=== PATIENT | female | born 1995 | race Caucasian/White ===

== ENCOUNTER 2022-03-22 23:46 | Inpatient (IN) | payer OTHER, SELFPAY ==
[2022-03-23 00:11] VITALS: BP 113/74; PULSE 95; RESP 16; TEMP 36.6; O2SAT 97
[2022-03-23] MEDS: traZODone HCL 50 MG TABLET PO ×2 (00:38→21:59)
[2022-03-23 02:09] VITALS: BMI 21.9
[2022-03-23 09:43] VITALS: BP 115/71; PULSE 97; RESP 18; TEMP 36.4; O2SAT 97
[2022-03-23] MEDS: clonazePAM 0.5 MG TABLET PO ×2 (13:35→22:00)
[2022-03-23] MEDS: Nicotine 21 MG PATCH.TD24 TRANSDERMA (13:35)
[2022-03-23] MEDS: hydrOXYzine HCL 25 MG TABLET PO ×2 (15:05→20:39)
[2022-03-23 15:49] VITALS: BP 113/73; PULSE 104; RESP 18
--- NOTE | 2022-03-23 15:58 | P.CONHOSP_ITS ---
History of Present Illness Data of Consult Service Date: 03/23/22 Requesting physician: Emmanuel Swanson Primary Care Provider: Unknown Physician HPI 26 year old women with hx of ASD with no acute complications admitted to adult [facility] for psychiatric care. At this time she has no acute medical complaints. No labs have been drawn, she is hemodynamically stable. Review of Systems Review of Systems: Denies any recent fever chills or decrease in appetite respiratory denies any shortness of breath coverage production cardiovascular reported substernal chest pain gastrointestinal denies any dysphagia abdominal pain nausea vomiting or diarrhea genitourinary denies any dysuria frequency or hematuria musculoskeletal denies any joint pain or swelling neuropsych denies any weakness or seizures all other systems reviewed are negative [facility] Medical History (Updated 03/23/22 @ 16:04 by Gabriela Lyon NP) Atrial septal defect Family History (Updated 03/23/22 @ 16:02 by Gabriela Lyon NP) Father Myocardial infarction Pertinent family history: Cancer, unknown type Surgical History (Updated 03/23/22 @ 16:01 by Gabriela Lyon NP) No pertinent past surgical history Social History Household Members: Family Housing: House Do you presently have visiting nurse or other home services: No Patient Tobacco Use Status: Current everyday Tobacco user Tobacco use type: Smokeless Tobacco Smoked in Last 30 Days: Yes e-Cigarette/Vaping Use: Currently Using Patient Interested in Nicotine Replacement: Yes Patient Given Instructions on How to Stop Smoking: No Second Hand Smoke Exposure: No Use of substances other than those prescribed or required for medical reasons: Yes Substance Use Type: Marijuana Substance Use Frequency: Occasionally Currently Displaying Signs/Symptoms of Drug Intoxication Withdrawal: No Other Past Substance Use Problem:: pt has chronic hx of substance use, mainly cocaine, last used 4-5 mos ago Any prior treatment program specific to substance use: Yes (pt recently at treatment facility in [place]) Spiritual Healthcare Practices: none noted Orthodoxy Healthcare Practices: none noted Cultural Healthcare Practices: none noted Advance Directives: No Do you have thoughts of harming others: None Do you have a plan to hurt others: No Plan Recently lost weight without trying: No Nutrition Risks: No Nutritional Risk Patient : No : No Meds Allergies Allergy/AdvReac Type Severity Reaction Status Date / Time bupropion [From Wellbutrin] Allergy Anaphylaxis Verified 03/23/22 02:09 mushroom Allergy Hives Verified 03/23/22 02:09 Penicillins Allergy Anaphylaxis Verified 03/23/22 00:28 Active Medications: Current Medications Acetaminophen (Acetaminophen 325 Mg Tablet) 650 mg PO Q6H PRN PRN Reason: Headache/Pain Mild Scale (1-3) Al Hydroxide/Mg Hydroxide (Magnesium Hydrox/Alum Hydrox 30 Ml Oral.Susp) 30 ml PO Q6H PRN PRN Reason: Heartburn/Nausea Clonazepam (Clonazepam 0.5 Mg Tablet) 0.5 mg PO BID [facility]HAEL Clonidine HCl (Clonidine Hcl 0.1 Mg Tablet) 0.05 mg PO BID@0900,1500 MICHAEL; Protocol Clonidine HCl (Clonidine Hcl 0.1 Mg Tablet) 0.1 mg PO BEDTIME MICHAEL; Protocol Hydroxyzine HCl (Hydroxyzine Hcl 25 Mg Tablet) 25 mg PO Q4H PRN PRN Reason: Anxiety Last Admin: 03/23/22 15:05 Dose: 25 mg Hydroxyzine HCl (Hydroxyzine Hcl 25 Mg Tablet) 25 mg PO BID MICHAEL Magnesium Hydroxide (Milk Of Magnesia 30 Ml Oral.Susp) 30 ml PO DAILY PRN PRN Reason: Constipation Nicotine (Nicotine 21 Mg Patch.Td24) 21 mg TRANSDERMA DAILY MICHAEL Last Admin: 03/23/22 13:35 Dose: 21 mg Nicotine Polacrilex (Nicotine Polacrilex 2 Mg Gum) 4 mg BUCCAL Q2H PRN PRN Reason: Nicotine Cravings Olanzapine (Olanzapine 5 Mg Tablet) 5 mg PO Q4H PRN PRN Reason: agitation Trazodone HCl (Trazodone Hcl 50 Mg Tablet) 50 mg PO BEDTIME PRN PRN Reason: Insomnia Last Admin: 03/23/22 00:38 Dose: 25 mg Home Medications Medication Instructions Recorded Confirmed Last Taken Type Vitamin C 1,000 mg PO DAILY 03/23/22 03/23/22 Unknown History divalproex 250 mg tablet,delayed 250 mg PO BID 03/23/22 03/23/22 Unknown History release (Depakote) hydroxyzine pamoate 25 mg capsule 25 mg BID 03/23/22 03/23/22 Unknown History levetiracetam 500 mg tablet 500 mg PO BID 03/23/22 03/23/22 Unknown History (Keppra) oxcarbazepine 300 mg tablet 300 mg PO BID 03/23/22 03/23/22 Unknown History sertraline 50 mg tablet 50 mg PO DAILY 03/23/22 03/23/22 Unknown History Physical Exam Vital Signs and Narrative: Vital Signs: Last Vital Signs Temp 97.5 F 03/23/22 09:43 Pulse 104 H 03/23/22 15:49 Resp 18 03/23/22 15:49 BP 113/73 03/23/22 15:49 Pulse Ox 97 03/23/22 09:43 O2 Del Method 03/23/22 09:43 BMI result Body Mass Index 21.9 Appearing in no acute distress head is normocephalic atraumatic eyes pupils are PERRLA sclera is anicteric lung sounds are clear to auscultation heart regular rate rhythm, clear S1, S2 positive bowel sounds, abdomen is soft, nontender neuro patient is alert x3, no focal deficits Musculoskeletal palpable substernal chest pain Cranial nerves 2-12 are grossly intact without focal deficits Assessment and Plan (1) Poor mental health: Status: Acute Plan 26-year-old admitted to adult psych for psychiatric care Substernal chest pain, pain on palpation Musculoskeletal May take ibuprofen Hot packs Mental health Management as per psychiatric team History of atrial septal defect, congenital No surgical intervention Should follow up with helper driver at some point outpatient Attending Dr. Panda
[2022-03-23] MEDS: cloNIDine HCL 0.1 MG TABLET 0.05 MG PO (15:59)
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
[2022-03-23] MEDS: cloNIDine HCL 0.1 MG TABLET PO (21:58)
[2022-03-23 22:40] VITALS: BP 121/66; PULSE 92; RESP 18; TEMP 36.4; O2SAT 99
[2022-03-24 06:00] VITALS: BP 108/65; PULSE 76; RESP 18; TEMP 36.4; O2SAT 100
[2022-03-24 07:33] LABS: Estimated Average Glucose 94 mg/dL; Hemoglobin A1c % 4.9 %
[2022-03-24 07:48] LABS: Alanine Aminotransferase 32 U/L (0-31); Albumin Level 4.1 g/dL (3.5-5.0); Alkaline Phosphatase 39 U/L (39-117); Anion Gap 11 (12-20); Aspartate Amino Transferase 20 U/L (5-31); Bilirubin Direct < 0.2 mg/dL (0.0-0.5); Bilirubin Total 0.3 mg/dL (0.0-1.0); Blood Urea Nitrogen 16 mg/dL (9-16); Calcium 9.2 mg/dL (8.4-10.2); Carbon Dioxide 25 mmol/L (22-29); Chloride 104 mmol/L (96-108); Cholesterol 196 mg/dL; Creatinine Clr Calc Pharmacy 85.8; Estimated Glomerular Filt Rate > 60; Glucose Fasting 96 mg/dL (60-99); HDL Cholesterol 62 mg/dL; LDL Cholesterol Calculated 113 mg/dl; Potassium 3.9 mmol/L (3.3-5.1); Sodium 136 mmol/L (135-145); Total Protein 6.6 g/dL (6.5-8.0); Triglycerides 107 mg/dL
[2022-03-24 08:10] LABS: Free T4 (Free Thyroxine) 0.78 ng/dL (0.71-1.85); Thyroid Stimulating Hormone 1.96 uIU/mL (0.32-4.0)
[2022-03-24] MEDS: hydrOXYzine HCL 25 MG TABLET PO ×3 (09:58→18:58)
[2022-03-24] MEDS: cloNIDine HCL 0.1 MG TABLET 0.05 MG PO (09:58)
[2022-03-24] MEDS: clonazePAM 0.5 MG TABLET PO ×2 (09:59→21:47)
[2022-03-24] MEDS: Nicotine 21 MG PATCH.TD24 TRANSDERMA (09:59)
[2022-03-24 11:37] VITALS: BP 110/58; PULSE 82; RESP 18; O2SAT 100
[2022-03-24 14:40] VITALS: BP 110/59; PULSE 72; O2SAT 100
[2022-03-24] MEDS: cloNIDine HCL 0.1 MG TABLET PO (14:44)
[2022-03-24] MEDS: Divalproex Sodium 500 MG TABLET.DR PO ×2 (14:44→21:47)
--- NOTE | 2022-03-24 15:27 | HO.PSYCHPN ---
Subjective Subjective Date of Service: 03/24/22 Reason For Visit: Posttraumatic Stress Interim History: pt on phone, kody HERNANDEZ. states she needs to speak to MD. states her somatic Sx seem to have resolved but her PTSD Sx have been in overdrive. she asks to restart VPA 500 BID, as she found that to have been helpful in the past. in addition, willing to increase clonidine to 0.1/0.1/0.2. per staff, slept well. feeling physically fine now, but thoughts racing. episode of CP (anxiety). vistaril has been helpful. very anxious. had nightmares but had left juany patch on. will be sure to remove juany patch prior to sleep tonight. Mental Status Exam Mental Status Exam Narrative: appropriately dressed and groomed. no PMA/PMR. cooperative. speech incr rate, amount; nml loudness, tone, latency. thoughts linear and logical. affect full range, normo-intense, non-labile. mood anxious. no SI/HI/AVH expressed. Diagnostics Vital Signs (24Hr): Vital Signs - 24 hr 03/23/22 15:49 03/23/22 22:40 03/24/22 06:00 Temperature 97.6 F 97.6 F Pulse Rate 104 H 92 76 Respiratory Rate 18 18 18 Blood Pressure 113/73 121/66 108/65 Pulse Oximetry 99 100 Oxygen Delivery Method Room Air Room Air 03/24/22 11:37 03/24/22 14:40 Temperature Pulse Rate 82 72 Respiratory Rate 18 Blood Pressure 110/58 L 110/59 L Pulse Oximetry 100 100 Oxygen Delivery Method Room Air Room Air BMI result Body Mass Index 21.9 Labs Results: 03/24/22 06:57 Labs: Laboratory Results - last 48 hr 03/24/22 03/24/22 06:57 06:57 Sodium 136 Potassium 3.9 Chloride 104 Carbon Dioxide 25 Anion Gap 11 L BUN 16 Creatinine 0.75 Estim Creat Clear Calc 85.8 Estimated GFR > 60 Fasting Glucose 96 Estimat Average Glucose 94 Hemoglobin A1c % 4.9 Calcium 9.2 Total Bilirubin 0.3 Direct Bilirubin < 0.2 AST 20 ALT 32 H Alkaline Phosphatase 39 Total Protein 6.6 Albumin 4.1 Triglycerides 107 Cholesterol 196 LDL Cholesterol, Calc 113 HDL Cholesterol 62 TSH 1.96 Free T4 0.78 Medications Medications Current Medications Acetaminophen (Acetaminophen 325 Mg Tablet) 650 mg PO Q6H PRN PRN Reason: Headache/Pain Mild Scale (1-3) Al Hydroxide/Mg Hydroxide (Magnesium Hydrox/Alum Hydrox 30 Ml Oral.Susp) 30 ml PO Q6H PRN PRN Reason: Heartburn/Nausea Artificial Tears (Artificial Tears 15 Ml Drops) 1 drop EYE-BOTH Q4H PRN PRN Reason: Dry Eyes Clonazepam (Clonazepam 0.5 Mg Tablet) 0.5 mg PO BID [facility] Last Admin: 03/24/22 09:59 Dose: 0.5 mg Clonidine HCl (Clonidine Hcl 0.1 Mg Tablet) 0.1 mg PO BID@0900,1500 [facility]; Protocol Last Admin: 03/24/22 14:44 Dose: 0.1 mg Clonidine HCl (Clonidine Hcl 0.2 Mg Tablet) 0.2 mg PO BEDTIME [facility]; Protocol Divalproex Sodium (Divalproex Sodium 500 Mg Tablet.Dr) 500 mg PO BID [facility] Last Admin: 03/24/22 14:44 Dose: 500 mg Hydroxyzine HCl (Hydroxyzine Hcl 25 Mg Tablet) 25 mg PO Q4H PRN PRN Reason: Anxiety Last Admin: 03/24/22 11:42 Dose: 25 mg Hydroxyzine HCl (Hydroxyzine Hcl 25 Mg Tablet) 25 mg PO BID [facility] Last Admin: 03/24/22 09:58 Dose: 25 mg Magnesium Hydroxide (Milk Of Magnesia 30 Ml Oral.Susp) 30 ml PO DAILY PRN PRN Reason: Constipation Nicotine (Nicotine 21 Mg Patch.Td24) 21 mg TRANSDERMA DAILY [facility] Last Admin: 03/24/22 09:59 Dose: 21 mg Nicotine Polacrilex (Nicotine Polacrilex 2 Mg Gum) 4 mg BUCCAL Q2H PRN PRN Reason: Nicotine Cravings Olanzapine (Olanzapine 5 Mg Tablet) 5 mg PO Q4H PRN PRN Reason: agitation Trazodone HCl (Trazodone Hcl 50 Mg Tablet) 50 mg PO BEDTIME PRN PRN Reason: Insomnia Allergies Allergies Allergy/AdvReac Type Severity Reaction Status Date / Time bupropion [From Wellbutrin] Allergy Anaphylaxis Verified 03/23/22 02:09 mushroom Allergy Hives Verified 03/23/22 02:09 Penicillins Allergy Anaphylaxis Verified 03/23/22 00:28 Assessment & Plan Assessment & Plan (1) Cocaine use disorder: Status: Acute Code(s): F14.10 - Cocaine abuse, uncomplicated (2) Chronic post-traumatic stress disorder (PTSD): Status: Acute Code(s): F43.12 - Post-traumatic stress disorder, chronic Plan 03/23: start clonidine 0.05/0.05/0.1 for sympathetic hyperarousal and insomnia with nightmares. start klonopin 0.5 BID for Sz prophylaxis as pt stops 3 AEDs simultaneously. also, anxiety. restart hydroxyzine 25 BID and 25 PRN. 03/24: increased clonidine to 0.1/0.1/0.2 for anxiety/hyperarousal. continue klonopin for now. somatic complaints have ceased, pt requesting VPA restart 500 BID for anxiety, which is accommodated. I spent ___25___ minutes with the patient and/or on the patient floor today, greater than?50% of which was spent counseling/coordinating care. Reason for contiued inpatient stay Substantial Risk for: harm to self, inability to function and rapid decompensation
[2022-03-24] MEDS: Magnesium Hydrox/Alum Hydrox 30 ML ORAL.SUSP PO (18:43)
[2022-03-24] MEDS: Nicotine Polacrilex 2 MG GUM 4 MG BUCCAL (21:26)
[2022-03-24] MEDS: cloNIDine HCL 0.2 MG TABLET PO (21:48)
[2022-03-24] MEDS: traZODone HCL 50 MG TABLET PO (21:50)
[2022-03-24] MEDS: Artificial Tears 15 ML DROPS 1 DROP EYE-BOTH (21:54)
[2022-03-24 21:56] VITALS: BP 110/69; PULSE 80; RESP 18; TEMP 36.7; O2SAT 100
[2022-03-25 06:00] VITALS: BP 94/53; PULSE 64; RESP 16; TEMP 36.7; O2SAT 99
[2022-03-25] MEDS: hydrOXYzine HCL 25 MG TABLET PO ×3 (09:23→22:11)
[2022-03-25] MEDS: Divalproex Sodium 500 MG TABLET.DR PO ×2 (09:23→22:10)
[2022-03-25] MEDS: clonazePAM 0.5 MG TABLET PO ×2 (09:23→22:10)
[2022-03-25] MEDS: Acetaminophen 325 MG TABLET 650 MG PO (09:40)
[2022-03-25 11:15] LABS: Folate 14.5 ng/mL (> or = 4.0); Vitamin B12 892 pg/mL (200-900)
[2022-03-25] MEDS: Artificial Tears 15 ML DROPS 1 DROP EYE-BOTH (11:17)
--- NOTE | 2022-03-25 14:07 | P.PNPSI_ITS ---
Subjective Subjective Date of Service: 03/25/22 Reason For Visit: Posttraumatic Stress Interim History: pt states her mood and anxiety are improved from yesterday, glad the depakote has been restarted. feels most of her neurologic somatic complaints have resolved. she has been experiencing CP, however, midsternum to right side, dull, 7/10, intermittent, worse with palpation or positioning compressing the area, nothing seems to make it better. in addition she c/o rash over right abd /flank down through her thigh. the area has been itchy. the rash appears to have improved somewhat today, but it remains itchy. pt concerned about her BP having come down a bit and daytime clonidine is reduced back to 0.05 mg each dose. she states she had no nightmares last night and slept well, so HS clonidine to be left at 0.2 mg. although pt is resistant to taper of klonopin, she reluctantly agrees to begin the same, with morning dose being decreased to 0.25 mg tomorrow. per staff, during days yesterday pt felt like she was freaking out. restless, anxiety 7. abd rash, itchy. poor sleep friday night, nightmares, had left juany patch on. no nightmares last nihgt, juany patch was off. Mental Status Exam Mental Status Exam Narrative: appropriately dressed and groomed. no PMA/PMR. cooperative. speech incr rate, amount; nml loudness, tone, latency. thoughts linear and logical. affect constricted, normo-intense, non-labile. mood anxious. no SI/HI/AVH expressed. Diagnostics Vital Signs (24Hr): Vital Signs - 24 hr 03/24/22 14:40 03/24/22 21:56 03/25/22 06:00 Temperature 98.1 F 98.1 F Pulse Rate 72 80 64 Respiratory Rate 18 16 Blood Pressure 110/59 L 110/69 94/53 L Pulse Oximetry 100 100 99 Oxygen Delivery Method Room Air Room Air Room Air BMI result Body Mass Index 21.9 Labs Results: 03/24/22 06:57 Labs: Laboratory Results - last 48 hr 03/24/22 03/24/22 03/24/22 06:57 06:57 06:57 Sodium 136 Potassium 3.9 Chloride 104 Carbon Dioxide 25 Anion Gap 11 L BUN 16 Creatinine 0.75 Estim Creat Clear Calc 85.8 Estimated GFR > 60 Fasting Glucose 96 Estimat Average Glucose 94 Hemoglobin A1c % 4.9 Calcium 9.2 Total Bilirubin 0.3 Direct Bilirubin < 0.2 AST 20 ALT 32 H Alkaline Phosphatase 39 Total Protein 6.6 Albumin 4.1 Triglycerides 107 Cholesterol 196 LDL Cholesterol, Calc 113 HDL Cholesterol 62 Vitamin B12 892 Folate 14.5 TSH 1.96 Free T4 0.78 Medications Medications Current Medications Acetaminophen (Acetaminophen 325 Mg Tablet) 650 mg PO Q6H PRN PRN Reason: Headache/Pain Mild Scale (1-3) Last Admin: 03/25/22 09:40 Dose: 650 mg Al Hydroxide/Mg Hydroxide (Magnesium Hydrox/Alum Hydrox 30 Ml Oral.Susp) 30 ml PO Q6H PRN PRN Reason: Heartburn/Nausea Last Admin: 03/24/22 18:43 Dose: 30 ml Artificial Tears (Artificial Tears 15 Ml Drops) 1 drop EYE-BOTH Q4H PRN PRN Reason: Dry Eyes Last Admin: 03/25/22 11:17 Dose: 1 drop Clonazepam (Clonazepam 0.5 Mg Tablet) 0.5 mg PO BEDTIME [facility] Clonazepam (Clonazepam 0.5 Mg Tablet) 0.25 mg PO DAILY [facility] Clonidine HCl (Clonidine Hcl 0.2 Mg Tablet) 0.2 mg PO BEDTIME [facility]; Protocol Last Admin: 03/24/22 21:48 Dose: 0.2 mg Clonidine HCl (Clonidine Hcl 0.1 Mg Tablet) 0.05 mg PO BID@0900,1500 [facility]; Protocol Divalproex Sodium (Divalproex Sodium 500 Mg Tablet.Dr) 500 mg PO BID [facility] Last Admin: 03/25/22 09:23 Dose: 500 mg Hydroxyzine HCl (Hydroxyzine Hcl 25 Mg Tablet) 25 mg PO Q4H PRN PRN Reason: Anxiety Last Admin: 03/24/22 18:58 Dose: 25 mg Hydroxyzine HCl (Hydroxyzine Hcl 25 Mg Tablet) 25 mg PO BID [facility] Last Admin: 03/25/22 09:23 Dose: 25 mg Magnesium Hydroxide (Milk Of Magnesia 30 Ml Oral.Susp) 30 ml PO DAILY PRN PRN Reason: Constipation Nicotine (Nicotine 21 Mg Patch.Td24) 21 mg TRANSDERMA DAILY [facility] Last Admin: 03/25/22 09:57 Dose: Not Given Nicotine Polacrilex (Nicotine Polacrilex 2 Mg Gum) 4 mg BUCCAL Q2H PRN PRN Reason: Nicotine Cravings Last Admin: 03/24/22 21:26 Dose: 4 mg Olanzapine (Olanzapine 5 Mg Tablet) 5 mg PO Q4H PRN PRN Reason: agitation Trazodone HCl (Trazodone Hcl 50 Mg Tablet) 50 mg PO BEDTIME PRN PRN Reason: Insomnia Last Admin: 03/24/22 21:50 Dose: 50 mg Allergies Allergies Allergy/AdvReac Type Severity Reaction Status Date / Time bupropion [From Wellbutrin] Allergy Anaphylaxis Verified 03/23/22 02:09 mushroom Allergy Hives Verified 03/23/22 02:09 Penicillins Allergy Anaphylaxis Verified 03/23/22 00:28 Assessment & Plan Assessment & Plan (1) Cocaine use disorder: Status: Acute Code(s): F14.10 - Cocaine abuse, uncomplicated (2) Chronic post-traumatic stress disorder (PTSD): Status: Acute Code(s): F43.12 - Post-traumatic stress disorder, chronic Plan 03/23: start clonidine 0.05/0.05/0.1 for sympathetic hyperarousal and insomnia with nightmares. start klonopin 0.5 BID for Sz prophylaxis as pt stops 3 AEDs simultaneously. also, anxiety. restart hydroxyzine 25 BID and 25 PRN. 03/24: increased clonidine to 0.1/0.1/0.2 for anxiety/hyperarousal. continue klonopin for now. somatic complaints have ceased, pt requesting VPA restart 500 BID for anxiety, which is accommodated. 03/25: less anxious today, BP down. decrease clonidine from 0.1/0.1/0.2 to 0.05/0.05/0 .2. slept well without nightmares. begin klonopin taper, going from 0.5 BID to 0.25/0.5 as of tomorrow. c/p CP and rash, hospitalist consult placed. I spent ___35___ minutes with the patient and/or on the patient floor today, greater than?50% of which was spent counseling/coordinating care. Reason for contiued inpatient stay Substantial Risk for: inability to function and rapid decompensation
[2022-03-25] MEDS: cloNIDine HCL 0.1 MG TABLET 0.05 MG PO (15:39)
--- NOTE | 2022-03-25 16:15 | PM.EVENT ---
Event Note Date of Service: 03/25/22 Event Note: Called to evaluate patient for rash. Patient reports rash on her left trunk and left leg which is pruritic in nature. No rash was able to be visualized upon exam. Patient states that the rash is improving. She also reports itchy eyes. Patient receiving Atarax as well as artificial tears. She also reported chest pain, evaluated for chest pain on the . No change in pain. Reproducible on exam, reports the pain is constant. EKG ordered. Likely muscular, can continue to treat symptomatically.
[2022-03-25] MEDS: OLANZapine 5 MG TABLET PO (17:34)
[2022-03-25] MEDS: Nicotine Polacrilex 2 MG GUM 4 MG BUCCAL (17:38)
[2022-03-25 20:28] VITALS: BP 104/59; PULSE 76; RESP 18; TEMP 36.6; O2SAT 100
[2022-03-25] MEDS: cloNIDine HCL 0.2 MG TABLET PO (22:09)
[2022-03-26 09:30] VITALS: BP 77/38; PULSE 52; RESP 16; TEMP 36.7; O2SAT 97
[2022-03-26] MEDS: clonazePAM 0.5 MG TABLET 0.25 MG PO (09:38)
[2022-03-26] MEDS: Divalproex Sodium 500 MG TABLET.DR PO ×2 (09:38→21:17)
[2022-03-26] MEDS: hydrOXYzine HCL 25 MG TABLET PO ×3 (09:38→21:17)
[2022-03-26] MEDS: Nicotine 21 MG PATCH.TD24 TRANSDERMA (09:40)
[2022-03-26] MEDS: Artificial Tears 15 ML DROPS 1 DROP EYE-BOTH (09:45)
--- NOTE | 2022-03-26 10:14 | PC.NURSE ---
Patient Clonidine held due to low BP 77/[address] Swanson notified. Retaken after food and fluids 93/57 HR 58. Patient haim any symptoms.
[2022-03-26] MEDS: OLANZapine 5 MG TABLET PO ×2 (13:33→21:17)
--- NOTE | 2022-03-26 14:00 | HO.PSYCHPN ---
Subjective Subjective Date of Service: 03/26/22 Reason For Visit: Posttraumatic Stress Interim History: pt calm and cooperative. very voluble. attempting to describe what she feels is wrong with her, what has been improved, what she still feels needs to be worked on. states the strange somatic things that were happening when she came in have resolved. doesn't mention chest pain or rash at all today. feeling better, starting to have feelings, but still dealing with a lot of anxiety and rapid thoughts. reiterates how SSRIs made her feel speedy. that she is feeling a bit speedy now. that she took a zyprexa PRN which helped get her thoughts together and feel more like herself. agrees to schedule zyprexa 5 BID. will DC daytime clonidine due to hypotension but continue HS clonidine for nightmares and insomnia. per staff, anx/dep 11/22. not happy with klonopin reduction. denies SI. feels safe on the unit. moderately depressed, no anxiety. attending groups. eating and sleeping well. Mental Status Exam Mental Status Exam Narrative: appropriately dressed and groomed. no PMA/PMR. cooperative. speech incr rate, amount; nml loudness, tone. decr latency. thoughts less linear and logical. affect full range, normo-intense, non-labile. mood anxious. no SI/HI/AVH expressed. Diagnostics Vital Signs (24Hr): Vital Signs - 24 hr 03/25/22 20:28 03/26/22 09:30 Temperature 97.9 F 98.0 F Pulse Rate 76 52 Respiratory Rate 18 16 Blood Pressure 104/59 L 77/38 L Pulse Oximetry 100 97 Oxygen Delivery Method Room Air Room Air BMI result Body Mass Index 21.9 Labs Results: 03/24/22 06:57 Labs: Laboratory Results - last 48 hr 03/24/22 06:57 Vitamin B12 892 Folate 14.5 Medications Medications Current Medications Acetaminophen (Acetaminophen 325 Mg Tablet) 650 mg PO Q6H PRN PRN Reason: Headache/Pain Mild Scale (1-3) Last Admin: 03/25/22 09:40 Dose: 650 mg Al Hydroxide/Mg Hydroxide (Magnesium Hydrox/Alum Hydrox 30 Ml Oral.Susp) 30 ml PO Q6H PRN PRN Reason: Heartburn/Nausea Last Admin: 03/24/22 18:43 Dose: 30 ml Artificial Tears (Artificial Tears 15 Ml Drops) 1 drop EYE-BOTH Q4H PRN PRN Reason: Dry Eyes Last Admin: 03/26/22 09:45 Dose: 1 drop Clonazepam (Clonazepam 0.5 Mg Tablet) 0.5 mg PO BEDTIME [facility] Last Admin: 03/25/22 22:10 Dose: 0.5 mg Clonazepam (Clonazepam 0.5 Mg Tablet) 0.25 mg PO DAILY [facility] Last Admin: 03/26/22 09:38 Dose: 0.25 mg Clonidine HCl (Clonidine Hcl 0.2 Mg Tablet) 0.2 mg PO BEDTIME [facility]; Protocol Last Admin: 03/25/22 22:09 Dose: 0.2 mg Divalproex Sodium (Divalproex Sodium 500 Mg Tablet.Dr) 500 mg PO BID [facility] Last Admin: 03/26/22 09:38 Dose: 500 mg Hydroxyzine HCl (Hydroxyzine Hcl 25 Mg Tablet) 25 mg PO Q4H PRN PRN Reason: Anxiety Last Admin: 03/25/22 15:39 Dose: 25 mg Hydroxyzine HCl (Hydroxyzine Hcl 25 Mg Tablet) 25 mg PO BID [facility] Last Admin: 03/26/22 09:38 Dose: 25 mg Magnesium Hydroxide (Milk Of Magnesia 30 Ml Oral.Susp) 30 ml PO DAILY PRN PRN Reason: Constipation Nicotine (Nicotine 21 Mg Patch.Td24) 21 mg TRANSDERMA DAILY [facility] Last Admin: 03/26/22 09:40 Dose: 21 mg Nicotine Polacrilex (Nicotine Polacrilex 2 Mg Gum) 4 mg BUCCAL Q2H PRN PRN Reason: Nicotine Cravings Last Admin: 03/25/22 17:38 Dose: 4 mg Olanzapine (Olanzapine 5 Mg Tablet) 5 mg PO Q4H PRN PRN Reason: agitation Last Admin: 03/25/22 17:34 Dose: 5 mg Olanzapine (Olanzapine 5 Mg Tablet) 5 mg PO BID [facility] Last Admin: 03/26/22 13:33 Dose: 5 mg Trazodone HCl (Trazodone Hcl 50 Mg Tablet) 50 mg PO BEDTIME PRN PRN Reason: Insomnia Last Admin: 03/24/22 21:50 Dose: 50 mg Allergies Allergies Allergy/AdvReac Type Severity Reaction Status Date / Time bupropion [From Wellbutrin] Allergy Severe Anaphylaxis Verified 03/26/22 09:49 Penicillins Allergy Severe Anaphylaxis Verified 03/26/22 09:49 mushroom Allergy Hives Verified 03/23/22 02:09 Assessment & Plan Assessment & Plan (1) Cocaine use disorder: Status: Acute Code(s): F14.10 - Cocaine abuse, uncomplicated (2) Chronic post-traumatic stress disorder (PTSD): Status: Acute Code(s): F43.12 - Post-traumatic stress disorder, chronic Plan 03/23: start clonidine 0.05/0.05/0.1 for sympathetic hyperarousal and insomnia with nightmares. start klonopin 0.5 BID for Sz prophylaxis as pt stops 3 AEDs simultaneously. also, anxiety. restart hydroxyzine 25 BID and 25 PRN. 03/24: increased clonidine to 0.1/0.1/0.2 for anxiety/hyperarousal. continue klonopin for now. somatic complaints have ceased, pt requesting VPA restart 500 BID for anxiety, which is accommodated. 03/25: less anxious today, BP down. decrease clonidine from 0.1/0.1/0.2 to 0.05/0.05/0.2. slept well without nightmares. begin klonopin taper, going from 0.5 BID to 0.25/0.5 as of tomorrow. c/p CP and rash, hospitalist consult placed. 03/26: anxious, helped by zyprexa. zyprexa scheduled at 5 BID today. daytime clonidine DCed due to hypotension. HS clonidine 0.2 mg conserved. starting to have feelings. I spent ___35___ minutes with the patient and/or on the patient floor today, greater than?50% of which was spent counseling/coordinating care. Reason for contiued inpatient stay Substantial Risk for: inability to function and rapid decompensation
[2022-03-26] MEDS: clonazePAM 0.5 MG TABLET PO (21:17)
[2022-03-26] MEDS: cloNIDine HCL 0.2 MG TABLET PO (21:17)
[2022-03-26] MEDS: Acetaminophen 325 MG TABLET 650 MG PO (21:23)
[2022-03-26 21:27] VITALS: BP 114/64; PULSE 70; RESP 18; TEMP 36.8; O2SAT 99
[2022-03-26] MEDS: traZODone HCL 50 MG TABLET PO (22:49)
[2022-03-26] MEDS: Ibuprofen 800 MG TABLET PO (23:34)
[2022-03-27 08:30] VITALS: BP 87/53; PULSE 65; RESP 16; TEMP 36.4; O2SAT 99
[2022-03-27] MEDS: OLANZapine 5 MG TABLET PO ×3 (09:08→20:58)
[2022-03-27] MEDS: clonazePAM 0.5 MG TABLET 0.25 MG PO (09:08)
[2022-03-27] MEDS: Divalproex Sodium 500 MG TABLET.DR PO ×2 (09:08→20:58)
[2022-03-27] MEDS: hydrOXYzine HCL 25 MG TABLET PO ×2 (09:08→11:48)
[2022-03-27] MEDS: Ibuprofen 800 MG TABLET PO (10:27)
[2022-03-27] MEDS: Nicotine Polacrilex 2 MG GUM 4 MG BUCCAL (10:29)
--- NOTE | 2022-03-27 11:00 | P.PNPSI_ITS ---
Subjective Subjective Date of Service: 03/27/22 Reason For Visit: Posttraumatic Stress Interim History: Patient seen gives a chaotic somewhat disorganized history. Patient on Depakote remains pressured labile perseverative Some degree of flight of ideas question anxiety related versus mood disorder try to get history of whether not the patient has been treated with antipsychotics not yet stabilized with Depakot e Medication Compliance: Yes Side effects from medications: Yes (Abdominal upset with Motrin) Mental Status Exam Mental Status Exam Narrative: Patient casually dressed seen with social work. Patient's speech is pressured anxious somewhat circumstantial disorganized in thought unclear delusional material related to body preoccupation denies SI or HI cannot see how she can deal with out sedatives concentration somewhat impaired impulse control intact Diagnostics Vital Signs (24Hr): Vital Signs - 24 hr 03/26/22 21:27 Temperature 98.2 F Pulse Rate 70 Respiratory Rate 18 Blood Pressure 114/64 Pulse Oximetry 99 Oxygen Delivery Method Room Air BMI result Body Mass Index 21.9 Labs Results: 03/24/22 06:57 Labs: Laboratory Results - last 48 hr 03/24/22 06:57 Vitamin B12 892 Folate 14.5 Medications Medications Current Medications Acetaminophen (Acetaminophen 325 Mg Tablet) 650 mg PO Q6H PRN PRN Reason: Headache/Pain Mild Scale (1-3) Last Admin: 03/26/22 21:23 Dose: 650 mg Al Hydroxide/Mg Hydroxide (Magnesium Hydrox/Alum Hydrox 30 Ml Oral.Susp) 30 ml PO Q6H PRN PRN Reason: Heartburn/Nausea Last Admin: 03/24/22 18:43 Dose: 30 ml Artificial Tears (Artificial Tears 15 Ml Drops) 1 drop EYE-BOTH Q4H PRN PRN Reason: Dry Eyes Last Admin: 03/26/22 09:45 Dose: 1 drop Clonazepam (Clonazepam 0.5 Mg Tablet) 0.5 mg PO BEDTIME [facility] Last Admin: 03/26/22 21:17 Dose: 0.5 mg Clonazepam (Clonazepam 0.5 Mg Tablet) 0.25 mg PO DAILY [facility] Last Admin: 03/27/22 09:08 Dose: 0.25 mg Clonidine HCl (Clonidine Hcl 0.2 Mg Tablet) 0.2 mg PO BEDTIME [facility]; Protocol Last Admin: 03/26/22 21:17 Dose: 0.2 mg Divalproex Sodium (Divalproex Sodium 500 Mg Tablet.) 500 mg PO BID [facility] Last Admin: 03/27/22 09:08 Dose: 500 mg Hydroxyzine HCl (Hydroxyzine Hcl 25 Mg Tablet) 25 mg PO Q4H PRN PRN Reason: Anxiety Last Admin: 03/26/22 18:35 Dose: 25 mg Hydroxyzine HCl (Hydroxyzine Hcl 25 Mg Tablet) 25 mg PO BID [facility] Last Admin: 03/27/22 09:08 Dose: 25 mg Ibuprofen (Ibuprofen 800 Mg Tablet) 800 mg PO Q8H PRN PRN Reason: mod-high pain Last Admin: 03/27/22 10:27 Dose: 800 mg Magnesium Hydroxide (Milk Of Magnesia 30 Ml Oral.Susp) 30 ml PO DAILY PRN PRN Reason: Constipation Nicotine (Nicotine 21 Mg Patch.Td24) 21 mg TRANSDERMA DAILY [facility] Last Admin: 03/27/22 10:31 Dose: Not Given Nicotine Polacrilex (Nicotine Polacrilex 2 Mg Gum) 4 mg BUCCAL Q2H PRN PRN Reason: Nicotine Cravings Last Admin: 03/27/22 10:29 Dose: 4 mg Olanzapine (Olanzapine 5 Mg Tablet) 5 mg PO Q4H PRN PRN Reason: agitation Last Admin: 03/25/22 17:34 Dose: 5 mg Olanzapine (Olanzapine 5 Mg Tablet) 5 mg PO BID [facility] Last Admin: 03/27/22 09:08 Dose: 5 mg Trazodone HCl (Trazodone Hcl 50 Mg Tablet) 50 mg PO BEDTIME PRN PRN Reason: Insomnia Last Admin: 03/26/22 22:49 Dose: 50 mg Allergies Allergies Allergy/AdvReac Type Severity Reaction Status Date / Time bupropion [From Wellbutrin] Allergy Severe Anaphylaxis Verified 03/26/22 09:49 Penicillins Allergy Severe Anaphylaxis Verified 03/26/22 09:49 mushroom Allergy Hives Verified 03/23/22 02:09 Assessment & Plan Assessment & Plan (1) Cocaine use disorder: Status: Acute Code(s): F14.10 - Cocaine abuse, uncomplicated (2) Chronic post-traumatic stress disorder (PTSD): Status: Acute Code(s): F43.12 - Post-traumatic stress disorder, chronic Plan 03/23: start clonidine 0.05/0.05/0.1 for sympathetic hyperarousal and insomnia with nightmares. start klonopin 0.5 BID for Sz prophylaxis as pt stops 3 AEDs simultaneously. also, anxiety. restart hydroxyzine 25 BID and 25 PRN. 03/24: increased clonidine to 0.1/0.1/0.2 for anxiety/hyperarousal. continue klonopin for now. somatic complaints have ceased, pt requesting VPA restart 500 BID for anxiety, which is accommodated. 03/25: less anxious today, BP down. decrease clonidine from 0.1/0.1/0.2 to 0.05/0.05/0.2. slept well without nightmares. begin klonopin taper, going from 0.5 BID to 0.25/0.5 as of tomorrow. c/p CP and rash, hospitalist consult placed. 03/26: anxious, helped by zyprexa. zyprexa scheduled at 5 BID today. daytime clonidine DCed due to hypotension. HS clonidine 0.2 mg conserved. starting to have feelings. 03/27/2022 Patient anxious pressured somewhat disorganized given literature for education regarding bipolar disorder unclear patient has cycling mood disorder. Not his stabilized ck Depakote level I spent minutes with the patient and/or on the patient floor today, greater than?50% of which was spent counseling/coordinating care. Reason for contiued inpatient stay Substantial Risk for: inability to function and rapid decompensation
[2022-03-27] MEDS: Ibuprofen 600 MG TABLET PO (19:06)
[2022-03-27 20:52] VITALS: BP 121/61; PULSE 73; RESP 16; TEMP 36.9; O2SAT 100
[2022-03-27] MEDS: clonazePAM 0.5 MG TABLET PO (20:57)
[2022-03-27] MEDS: cloNIDine HCL 0.2 MG TABLET PO (20:58)
[2022-03-27] MEDS: traZODone HCL 50 MG TABLET PO (20:58)
[2022-03-28 07:00] VITALS: BMI 23.4
[2022-03-28 08:00] VITALS: BP 122/75; PULSE 76; RESP 16; TEMP 36.6; O2SAT 97
[2022-03-28] MEDS: Divalproex Sodium 500 MG TABLET.DR PO (09:43)
[2022-03-28] MEDS: Omeprazole 20 MG CAPSULE.DR PO (09:43)
[2022-03-28] MEDS: OLANZapine 5 MG TABLET PO ×4 (09:43→21:24)
[2022-03-28] MEDS: clonazePAM 0.5 MG TABLET 0.25 MG PO ×2 (09:43→21:25)
[2022-03-28] MEDS: Artificial Tears 15 ML DROPS 1 DROP EYE-BOTH (09:44)
[2022-03-28] MEDS: Nicotine 21 MG PATCH.TD24 TRANSDERMA (09:45)
--- NOTE | 2022-03-28 14:05 | HO.PSYCHPN ---
Subjective Subjective Date of Service: 03/28/22 Reason For Visit: Posttraumatic Stress Interim History: calm, cooperative. quite wordy and a bit labile. agreeable to increase VPA. upset at klonopin taper, afraid her anxiety will not be controlled. per staff, anxious days. mood dep/anx. visitor last NOC. confused and spacey at times. Mental Status Exam Mental Status Exam Narrative: appropriately dressed and groomed. no PMA/PMR. cooperative. speech incr rate, amount; nml loudness, tone. decr latency. thoughts largely linear and logical. affect full range, normo-intense, mod-labile with some crying. no SI/HI/AVH expressed. Diagnostics Vital Signs (24Hr): Vital Signs - 24 hr 03/27/22 20:52 03/28/22 08:00 Temperature 98.5 F 97.9 F Pulse Rate 73 76 Respiratory Rate 16 16 Blood Pressure 121/61 122/75 Pulse Oximetry 100 97 Oxygen Delivery Method Room Air Room Air BMI result Body Mass Index 21.9 Labs Results: 03/24/22 06:57 Medications Medications Current Medications Acetaminophen (Acetaminophen 325 Mg Tablet) 650 mg PO Q6H PRN PRN Reason: Headache/Pain Mild Scale (1-3) Last Admin: 03/26/22 21:23 Dose: 650 mg Al Hydroxide/Mg Hydroxide (Magnesium Hydrox/Alum Hydrox 30 Ml Oral.Susp) 30 ml PO Q6H PRN PRN Reason: Heartburn/Nausea Last Admin: 03/24/22 18:43 Dose: 30 ml Artificial Tears (Artificial Tears 15 Ml Drops) 1 drop EYE-BOTH Q4H PRN PRN Reason: Dry Eyes Last Admin: 03/28/22 09:44 Dose: 1 drop Clonazepam (Clonazepam 0.5 Mg Tablet) 0.25 mg PO DAILY [facility] Last Admin: 03/28/22 09:43 Dose: 0.25 mg Clonazepam (Clonazepam 0.5 Mg Tablet) 0.25 mg PO BEDTIME [facility] Clonidine HCl (Clonidine Hcl 0.2 Mg Tablet) 0.2 mg PO BEDTIME [facility]; Protocol Last Admin: 03/27/22 20:58 Dose: 0.2 mg Divalproex Sodium (Divalproex Sodium 500 Mg Tablet.) 500 mg PO BID [facility] Last Admin: 03/28/22 09:43 Dose: 500 mg Ibuprofen (Ibuprofen 600 Mg Tablet) 600 mg PO Q8H PRN PRN Reason: mod-high pain Last Admin: 03/27/22 19:06 Dose: 600 mg Magnesium Hydroxide (Milk Of Magnesia 30 Ml Oral.Susp) 30 ml PO DAILY PRN PRN Reason: Constipation Nicotine (Nicotine 21 Mg Patch.Td24) 21 mg TRANSDERMA DAILY [facility] Last Admin: 03/28/22 09:45 Dose: 21 mg Nicotine Polacrilex (Nicotine Polacrilex 2 Mg Gum) 4 mg BUCCAL Q2H PRN PRN Reason: Nicotine Cravings Last Admin: 03/27/22 10:29 Dose: 4 mg Olanzapine (Olanzapine 5 Mg Tablet) 5 mg PO Q4H PRN PRN Reason: agitation Last Admin: 03/28/22 12:09 Dose: 5 mg Olanzapine (Olanzapine 5 Mg Tablet) 5 mg PO BID [facility] Last Admin: 03/28/22 09:43 Dose: 5 mg Omeprazole (Omeprazole 20 Mg Capsule.Dr) 20 mg PO DAILY@0630 [facility] Last Admin: 03/28/22 09:43 Dose: 20 mg Trazodone HCl (Trazodone Hcl 50 Mg Tablet) 50 mg PO BEDTIME PRN PRN Reason: Insomnia Last Admin: 03/27/22 20:58 Dose: 50 mg Allergies Allergies Allergy/AdvReac Type Severity Reaction Status Date / Time bupropion [From Wellbutrin] Allergy Severe Anaphylaxis Verified 03/26/22 09:49 Penicillins Allergy Severe Anaphylaxis Verified 03/26/22 09:49 mushroom Allergy Hives Verified 03/23/22 02:09 Assessment & Plan Assessment & Plan (1) Cocaine use disorder: Status: Acute Code(s): F14.10 - Cocaine abuse, uncomplicated (2) Chronic post-traumatic stress disorder (PTSD): Status: Acute Code(s): F43.12 - Post-traumatic stress disorder, chronic Plan 03/23: start clonidine 0.05/0.05/0.1 for sympathetic hyperarousal and insomnia with nightmares. start klonopin 0.5 BID for Sz prophylaxis as pt stops 3 AEDs simultaneously. also, anxiety. restart hydroxyzine 25 BID and 25 PRN. 03/24: increased clonidine to 0.1/0.1/0.2 for anxiety/hyperarousal. continue klonopin for now. somatic complaints have ceased, pt requesting VPA restart 500 BID for anxiety, which is accommodated. 03/25: less anxious today, BP down. decrease clonidine from 0.1/0.1/0.2 to 0.05/0.05/0.2. slept well without nightmares. begin klonopin taper, going from 0.5 BID to 0.25/0.5 as of tomorrow. c/p CP and rash, hospitalist consult placed. 03/26: anxious, helped by zyprexa. zyprexa scheduled at 5 BID today. daytime clonidine DCed due to hypotension. HS clonidine 0.2 mg conserved. starting to have feelings. 03/27/2022 Patient anxious pressured somewhat disorganized given literature for education regarding bipolar disorder unclear patient has cycling mood disorder. Not his stabilized ck Depakote level. 03/28: somewhat voluble and labile. agrees to increase VPA to 1250 mg daily. check labs after 5 days. taper klonopin further, to 0.25 BID. I spent ___35___ minutes with the patient and/or on the patient floor today, greater than?50% of which was spent counseling/coordinating care. Reason for contiued inpatient stay Substantial Risk for: inability to function and rapid decompensation
[2022-03-28] MEDS: Ibuprofen 600 MG TABLET PO (16:28)
[2022-03-28 21:15] VITALS: BP 139/74; PULSE 88; RESP 18; TEMP 36.6; O2SAT 99
[2022-03-28] MEDS: Divalproex Sodium 250 MG TABLET.DR 750 MG PO (21:24)
[2022-03-28] MEDS: cloNIDine HCL 0.2 MG TABLET PO (21:25)
[2022-03-28] MEDS: traZODone HCL 50 MG TABLET PO (22:19)
[2022-03-29 08:30] VITALS: BP 113/64; PULSE 68; RESP 17; TEMP 36.7; O2SAT 98
[2022-03-29] MEDS: OLANZapine 5 MG TABLET PO ×2 (08:33→20:19)
[2022-03-29] MEDS: Omeprazole 20 MG CAPSULE.DR PO (08:33)
[2022-03-29] MEDS: Divalproex Sodium 500 MG TABLET.DR PO (08:33)
[2022-03-29] MEDS: clonazePAM 0.5 MG TABLET 0.25 MG PO ×2 (08:33→20:20)
[2022-03-29] MEDS: Nicotine 21 MG PATCH.TD24 TRANSDERMA (08:34)
[2022-03-29 09:32] LABS: Valproate 68.1 mcg/mL (50.0-100.0)
--- NOTE | 2022-03-29 13:19 | HO.PSYCHPN ---
Subjective Subjective Date of Service: 03/29/22 Reason For Visit: Posttraumatic Stress Interim History: calm, cooperative. once again proving somewhat labile around level of anxiety, crying. asking for ativan, educated as to relationship to graeme. hydroxyzine PRNs added, which she has had in the past. initially apprehensive regarding plan to discharge next friday, becomes more agreeable once she is aware she will have intake for PHP and likely start PHP . AMANDA holli joins the interview, discuss dispo plan in detail, what to expect. per staff, mod anx, visible, isolative, eating and sleeping well. unstable with racing thoughts. Mental Status Exam Mental Status Exam Narrative: appropriately dressed and groomed. no PMA/PMR. cooperative. speech incr rate, amount; nml loudness, tone. decr latency. thoughts largely linear and logical. affect full range, normo-intense, mod-labile with some crying. no SI/HI/AVH expressed. Diagnostics Vital Signs (24Hr): Vital Signs - 24 hr 03/28/22 21:15 03/29/22 08:30 Temperature 97.9 F 98.1 F Pulse Rate 88 68 Respiratory Rate 18 17 Blood Pressure 139/74 113/64 Pulse Oximetry 99 98 Oxygen Delivery Method Room Air Room Air BMI result Body Mass Index 23.4 Labs Results: 03/24/22 06:57 Labs: Laboratory Results - last 48 hr 03/29/22 08:28 Valproic Acid 68.1 Medications Medications Current Medications Acetaminophen (Acetaminophen 325 Mg Tablet) 650 mg PO Q6H PRN PRN Reason: Headache/Pain Mild Scale (1-3) Last Admin: 03/26/22 21:23 Dose: 650 mg Al Hydroxide/Mg Hydroxide (Magnesium Hydrox/Alum Hydrox 30 Ml Oral.Susp) 30 ml PO Q6H PRN PRN Reason: Heartburn/Nausea Last Admin: 03/24/22 18:43 Dose: 30 ml Artificial Tears (Artificial Tears 15 Ml Drops) 1 drop EYE-BOTH Q4H PRN PRN Reason: Dry Eyes Last Admin: 03/28/22 09:44 Dose: 1 drop Clonazepam (Clonazepam 0.5 Mg Tablet) 0.25 mg PO BEDTIME [facility] Last Admin: 03/28/22 21:25 Dose: 0.25 mg Clonidine HCl (Clonidine Hcl 0.2 Mg Tablet) 0.2 mg PO BEDTIME [facility]; Protocol Last Admin: 03/28/22 21:25 Dose: 0.2 mg Divalproex Sodium (Divalproex Sodium 500 Mg Tablet.) 500 mg PO DAILY [facility] Last Admin: 03/29/22 08:33 Dose: 500 mg Divalproex Sodium (Divalproex Sodium 250 Mg Tablet.) 750 mg PO BEDTIME [facility] Last Admin: 03/28/22 21:24 Dose: 750 mg Hydroxyzine HCl (Hydroxyzine Hcl 25 Mg Tablet) 25 mg PO Q6H PRN PRN Reason: Anxiety Ibuprofen (Ibuprofen 600 Mg Tablet) 600 mg PO Q8H PRN PRN Reason: mod-high pain Last Admin: 03/28/22 16:28 Dose: 600 mg Magnesium Hydroxide (Milk Of Magnesia 30 Ml Oral.Susp) 30 ml PO DAILY PRN PRN Reason: Constipation Nicotine (Nicotine 21 Mg Patch.Td24) 21 mg TRANSDERMA DAILY [facility] Last Admin: 03/29/22 08:34 Dose: 21 mg Nicotine Polacrilex (Nicotine Polacrilex 2 Mg Gum) 4 mg BUCCAL Q2H PRN PRN Reason: Nicotine Cravings Last Admin: 03/27/22 10:29 Dose: 4 mg Olanzapine (Olanzapine 5 Mg Tablet) 5 mg PO Q4H PRN PRN Reason: agitation Last Admin: 03/28/22 19:43 Dose: 5 mg Olanzapine (Olanzapine 5 Mg Tablet) 5 mg PO BID [facility] Last Admin: 03/29/22 08:33 Dose: 5 mg Omeprazole (Omeprazole 20 Mg Capsule.) 20 mg PO DAILY@0630 [facility] Last Admin: 03/29/22 08:33 Dose: 20 mg Trazodone HCl (Trazodone Hcl 50 Mg Tablet) 50 mg PO BEDTIME PRN PRN Reason: Insomnia Last Admin: 03/28/22 22:19 Dose: 50 mg Allergies Allergies Allergy/AdvReac Type Severity Reaction Status Date / Time bupropion [From Wellbutrin] Allergy Severe Anaphylaxis Verified 03/26/22 09:49 Penicillins Allergy Severe Anaphylaxis Verified 03/26/22 09:49 mushroom Allergy Hives Verified 03/23/22 02:09 Assessment & Plan Assessment & Plan (1) Cocaine use disorder: Status: Acute Code(s): F14.10 - Cocaine abuse, uncomplicated (2) Chronic post-traumatic stress disorder (PTSD): Status: Acute Code(s): F43.12 - Post-traumatic stress disorder, chronic Plan 03/23: start clonidine 0.05/0.05/0.1 for sympathetic hyperarousal and insomnia with nightmares. start klonopin 0.5 BID for Sz prophylaxis as pt stops 3 AEDs simultaneously. also, anxiety. restart hydroxyzine 25 BID and 25 PRN. 03/24: increased clonidine to 0.1/0.1/0.2 for anxiety/hyperarousal. continue klonopin for now. somatic complaints have ceased, pt requesting VPA restart 500 BID for anxiety, which is accommodated. 03/25: less anxious today, BP down. decrease clonidine from 0.1/0.1/0.2 to 0.05/0.05/0.2. slept well without nightmares. begin klonopin taper, going from 0.5 BID to 0.25/0.5 as of tomorrow. c/p CP and rash, hospitalist consult placed. 03/26: anxious, helped by zyprexa. zyprexa scheduled at 5 BID today. daytime clonidine DCed due to hypotension. HS clonidine 0.2 mg conserved. starting to have feelings. 03/27/2022 Patient anxious pressured somewhat disorganized given literature for education regarding bipolar disorder unclear patient has cycling mood disorder. Not his stabilized ck Depakote level. 03/28: somewhat voluble and labile. agrees to increase VPA to 1250 mg daily. check labs after 5 days. taper klonopin further, to 0.25 BID. 03/29: same presentation as yesterday. hydroxyzine added PRN anxiety. klonopin tapered to 0.25 mg QHS as of 03/30. DC friday with PHP intake . I spent ___35___ minutes with the patient and/or on the patient floor today, greater than?50% of which was spent counseling/coordinating care. Reason for contiued inpatient stay Substantial Risk for: inability to function and rapid decompensation
[2022-03-29] MEDS: hydrOXYzine HCL 25 MG TABLET PO ×2 (14:13→23:08)
[2022-03-29] MEDS: Ibuprofen 600 MG TABLET PO (17:58)
[2022-03-29 20:17] VITALS: BP 120/60; PULSE 90; TEMP 36.6; O2SAT 98
[2022-03-29] MEDS: cloNIDine HCL 0.2 MG TABLET PO (20:19)
[2022-03-29] MEDS: Divalproex Sodium 250 MG TABLET.DR 750 MG PO (20:19)
[2022-03-29] MEDS: traZODone HCL 50 MG TABLET PO ×2 (20:20→22:08)
[2022-03-30] MEDS: OLANZapine 5 MG TABLET PO ×4 (01:42→20:39)
[2022-03-30 10:05] VITALS: BP 115/72; PULSE 81; RESP 16; TEMP 36.7; O2SAT 98
[2022-03-30] MEDS: Ibuprofen 600 MG TABLET PO (10:37)
[2022-03-30] MEDS: Divalproex Sodium 500 MG TABLET.DR PO (10:37)
[2022-03-30] MEDS: Omeprazole 20 MG CAPSULE.DR PO (10:37)
[2022-03-30] MEDS: Nicotine Polacrilex 2 MG GUM 4 MG BUCCAL (10:39)
--- NOTE | 2022-03-30 10:43 | P.PNPSI_ITS ---
Subjective Subjective Date of Service: 03/30/22 Reason For Visit: Posttraumatic Stress Subjective Notes: Conditional Voluntary Healthcare Proxy: No Guardianship: No Medical Problems Affecting Mental Status: Yes (according to pt pcoes) Interim History: Pt talking xsively -on phone alot- many ideas and feelings about medications would agree to inc depakote but not olanzapine on review already on higher depakote than pt agree to with provider in room- Believes she has PTSD, though seems manic currently angry about taper off of clonazepam by provider as she is being dced next week Medication Compliance: Yes Side effects from medications: No Attending Groups: Intermittent Review of Systems Acute medical concerns: No Medical Review of Systems: unchanged Mental Status Exam Mental Status Exam Patient Appearance: Well Grooomed and Appropriate Patient Orientation: Person, Place, Time and Situation Level of Consciousness: Awake Patient Behavior: Talkative and Resistive to Care (limited as to what mediction changes she will allow, already angry re decreased clonazepam) Mood Description: Elated (elevated) Affect Description: Labile (variable - ) Speech Pattern: Excessive Hallucinations: None Delusions: Not Present Thought Process: Intact and Goal Oriented Thought Content: positive for Tangential Depressive Symptoms: Increased Anxiety Abnormal Motor Activity Signs and Symptoms: Restlessness Judgement: Fair Diagnostics Vital Signs (24Hr): Vital Signs - 24 hr 03/29/22 20:17 Temperature 97.9 F Pulse Rate 90 Blood Pressure 120/60 Pulse Oximetry 98 Oxygen Delivery Method Room Air BMI result Body Mass Index 23.4 Labs Results: 03/24/22 06:57 Labs: Laboratory Results - last 48 hr 03/29/22 08:28 Valproic Acid 68.1 Medications Medications Current Medications Acetaminophen (Acetaminophen 325 Mg Tablet) 650 mg PO Q6H PRN PRN Reason: Headache/Pain Mild Scale (1-3) Last Admin: 03/26/22 21:23 Dose: 650 mg Al Hydroxide/Mg Hydroxide (Magnesium Hydrox/Alum Hydrox 30 Ml Oral.Susp) 30 ml PO Q6H PRN PRN Reason: Heartburn/Nausea Last Admin: 03/24/22 18:43 Dose: 30 ml Artificial Tears (Artificial Tears 15 Ml Drops) 1 drop EYE-BOTH Q4H PRN PRN Reason: Dry Eyes Last Admin: 03/28/22 09:44 Dose: 1 drop Clonazepam (Clonazepam 0.5 Mg Tablet) 0.25 mg PO BEDTIME MICHAEL Last Admin: 03/29/22 20:20 Dose: 0.25 mg Clonidine HCl (Clonidine Hcl 0.2 Mg Tablet) 0.2 mg PO BEDTIME [facility]; Protocol Last Admin: 03/29/22 20:19 Dose: 0.2 mg Divalproex Sodium (Divalproex Sodium 500 Mg Tablet.) 500 mg PO DAILY [facility] Last Admin: 03/30/22 10:37 Dose: 500 mg Divalproex Sodium (Divalproex Sodium 250 Mg Tablet.) 750 mg PO BEDTIME [facility] Last Admin: 03/29/22 20:19 Dose: 750 mg Hydroxyzine HCl (Hydroxyzine Hcl 25 Mg Tablet) 25 mg PO Q6H PRN PRN Reason: Anxiety Last Admin: 03/29/22 23:08 Dose: 25 mg Ibuprofen (Ibuprofen 600 Mg Tablet) 600 mg PO Q8H PRN PRN Reason: mod-high pain Last Admin: 03/30/22 10:37 Dose: 600 mg Magnesium Hydroxide (Milk Of Magnesia 30 Ml Oral.Susp) 30 ml PO DAILY PRN PRN Reason: Constipation Nicotine (Nicotine 21 Mg Patch.Td24) 21 mg TRANSDERMA DAILY [facility] Last Admin: 03/29/22 08:34 Dose: 21 mg Nicotine Polacrilex (Nicotine Polacrilex 2 Mg Gum) 4 mg BUCCAL Q2H PRN PRN Reason: Nicotine Cravings Last Admin: 03/30/22 10:39 Dose: 4 mg Olanzapine (Olanzapine 5 Mg Tablet) 5 mg PO Q4H PRN PRN Reason: agitation Last Admin: 03/30/22 01:42 Dose: 5 mg Olanzapine (Olanzapine 5 Mg Tablet) 5 mg PO BID [facility] Last Admin: 03/30/22 10:37 Dose: 5 mg Omeprazole (Omeprazole 20 Mg Capsule.) 20 mg PO DAILY@0630 [facility] Last Admin: 03/30/22 10:37 Dose: 20 mg Trazodone HCl (Trazodone Hcl 50 Mg Tablet) 50 mg PO BEDTIME PRN PRN Reason: Insomnia Last Admin: 03/29/22 22:08 Dose: 50 mg Allergies Allergies Allergy/AdvReac Type Severity Reaction Status Date / Time bupropion [From Wellbutrin] Allergy Severe Anaphylaxis Verified 03/26/22 09:49 Penicillins Allergy Severe Anaphylaxis Verified 03/26/22 09:49 mushroom Allergy Hives Verified 03/23/22 02:09 Assessment & Plan Assessment & Plan (1) Chronic post-traumatic stress disorder (PTSD): Status: Acute Code(s): F43.12 - Post-traumatic stress disorder, chronic Assessment and Plan: ongoing complaints of anxiety around this (2) Di: Status: Acute Code(s): F30.9 - Manic episode, unspecified Assessment and Plan: being put on appropriate medication for this with depakote and olanzapine Plan 03/23: start clonidine 0.05/0.05/0.1 for sympathetic hyperarousal and insomnia with nightmares. start klonopin 0.5 BID for Sz prophylaxis as pt stops 3 AEDs simultaneously. also, anxiety. restart hydroxyzine 25 BID and 25 PRN. 03/24: increased clonidine to 0.1/0.1/0.2 for anxiety/hyperarousal. continue klonopin for now. somatic complaints have ceased, pt requesting VPA restart 500 BID for anxiety, which is accommodated. 03/25: less anxious today, BP down. decrease clonidine from 0.1/0.1/0.2 to 0.05/0.05/0.2. slept well without nightmares. begin klonopin taper, going from 0.5 BID to 0.25/0.5 as of tomorrow. c/p CP and rash, hospitalist consult placed. 03/26: anxious, helped by zyprexa. zyprexa scheduled at 5 BID today. daytime clonidine DCed due to hypotension. HS clonidine 0.2 mg conserved. starting to have feelings. 03/27/2022 Patient anxious pressured somewhat disorganized given literature for education regarding bipolar disorder unclear patient has cycling mood disorder. Not his stabilized ck Depakote level. 03/28: somewhat voluble and labile. agrees to increase VPA to 1250 mg daily. check labs after 5 days. taper klonopin further, to 0.25 BID. 03/29: same presentation as yesterday. hydroxyzine added PRN anxiety. klonopin tapered to 0.25 mg QHS as of 03/30. DC friday with PHP intake . I spent minutes with the patient and/or on the patient floor today, greater than?50% of which was spent counseling/coordinating care. Patient educated on: medication risk/benefits Informed Consent: further education needed Reason for contiued inpatient stay Substantial Risk for: rapid decompensation
[2022-03-30] MEDS: hydrOXYzine HCL 25 MG TABLET PO (10:56)
[2022-03-30] MEDS: Artificial Tears 15 ML DROPS 1 DROP EYE-BOTH (15:41)
[2022-03-30] MEDS: hydrOXYzine HCL 50 MG TABLET PO (17:33)
[2022-03-30 20:32] VITALS: BP 107/70; PULSE 90; TEMP 36.7; O2SAT 100
[2022-03-30] MEDS: clonazePAM 0.5 MG TABLET 0.25 MG PO (20:37)
[2022-03-30] MEDS: cloNIDine HCL 0.2 MG TABLET PO (20:38)
[2022-03-30] MEDS: Divalproex Sodium 250 MG TABLET.DR 750 MG PO (20:38)
[2022-03-31 06:00] VITALS: BP 114/78; PULSE 84; RESP 16; TEMP 36.4; O2SAT 100
--- NOTE | 2022-03-31 09:46 | HO.PSYCHPN ---
Subjective Subjective Date of Service: 03/31/22 Reason For Visit: Posttraumatic Stress Subjective Notes: Conditional Voluntary Healthcare Proxy: No Guardianship: No Medical Problems Affecting Mental Status: No Interim History: Pt reports waking up every am x2 angry - and believes it is olanzapine (though could be lower clonazepam?) also co inc appetite and not sleeping continues hyperverbal and mildl labile affecr Medication Compliance: No (refused am olanzapine) Side effects from medications: Yes (inc appetite and pt reports anger (?)) Attending Groups: Yes Review of Systems Acute medical concerns: No Medical Review of Systems: unchanged Mental Status Exam Mental Status Exam Patient Appearance: Well Grooomed and Appropriate Patient Orientation: Person, Place, Time and Situation Level of Consciousness: Awake Patient Behavior: Appropriate and Talkative Mood Description: Calm Affect Description: Appropriate Patient Cognition Impaired: No Ability to Follow Directions: Fair Speech Pattern: Clear Thought Process: Intact Thought Content: positive for Racing Depressive Symptoms: Increased Anxiety and Changes in Appetite Abnormal Motor Activity Signs and Symptoms: Hyperactivity Judgement: Fair Diagnostics Vital Signs (24Hr): Vital Signs - 24 hr 03/30/22 10:05 03/30/22 20:32 Temperature 98.0 F 98.1 F Pulse Rate 81 90 Respiratory Rate 16 Blood Pressure 115/72 107/70 Pulse Oximetry 98 100 Oxygen Delivery Method Room Air Room Air BMI result Body Mass Index 23.4 Labs Results: 03/24/22 06:57 Medications Medications Current Medications Acetaminophen (Acetaminophen 325 Mg Tablet) 650 mg PO Q6H PRN PRN Reason: Headache/Pain Mild Scale (1-3) Last Admin: 03/26/22 21:23 Dose: 650 mg Al Hydroxide/Mg Hydroxide (Magnesium Hydrox/Alum Hydrox 30 Ml Oral.Susp) 30 ml PO Q6H PRN PRN Reason: Heartburn/Nausea Last Admin: 03/24/22 18:43 Dose: 30 ml Artificial Tears (Artificial Tears 15 Ml Drops) 1 drop EYE-BOTH Q4H PRN PRN Reason: Dry Eyes Last Admin: 03/30/22 15:41 Dose: 1 drop Clonazepam (Clonazepam 0.5 Mg Tablet) 0.25 mg PO BEDTIME MICHAEL Last Admin: 03/30/22 20:37 Dose: 0.25 mg Clonidine HCl (Clonidine Hcl 0.2 Mg Tablet) 0.2 mg PO BEDTIME MICHAEL; Protocol Last Admin: 03/30/22 20:38 Dose: 0.2 mg Divalproex Sodium (Divalproex Sodium 500 Mg Tablet.) 500 mg PO DAILY [facility] Last Admin: 03/30/22 10:37 Dose: 500 mg Divalproex Sodium (Divalproex Sodium 250 Mg Tablet.) 750 mg PO BEDTIME [facility] Last Admin: 03/30/22 20:38 Dose: 750 mg Hydroxyzine HCl (Hydroxyzine Hcl 50 Mg Tablet) 50 mg PO Q6H PRN PRN Reason: Anxiety Last Admin: 03/30/22 17:33 Dose: 50 mg Ibuprofen (Ibuprofen 600 Mg Tablet) 600 mg PO Q8H PRN PRN Reason: mod-high pain Last Admin: 03/30/22 10:37 Dose: 600 mg Magnesium Hydroxide (Milk Of Magnesia 30 Ml Oral.Susp) 30 ml PO DAILY PRN PRN Reason: Constipation Nicotine (Nicotine 21 Mg Patch.Td24) 21 mg TRANSDERMA DAILY [facility] Last Admin: 03/30/22 11:37 Dose: Not Given Nicotine Polacrilex (Nicotine Polacrilex 2 Mg Gum) 4 mg BUCCAL Q2H PRN PRN Reason: Nicotine Cravings Last Admin: 03/30/22 10:39 Dose: 4 mg Olanzapine (Olanzapine 5 Mg Tablet) 5 mg PO Q4H PRN PRN Reason: agitation Last Admin: 03/30/22 15:47 Dose: 5 mg Olanzapine (Olanzapine 5 Mg Tablet) 5 mg PO BID [facility] Last Admin: 03/30/22 20:39 Dose: 5 mg Omeprazole (Omeprazole 20 Mg Capsule.) 20 mg PO DAILY@0630 [facility] Last Admin: 03/30/22 10:37 Dose: 20 mg Allergies Allergies Allergy/AdvReac Type Severity Reaction Status Date / Time bupropion [From Wellbutrin] Allergy Severe Anaphylaxis Verified 03/26/22 09:49 Penicillins Allergy Severe Anaphylaxis Verified 03/26/22 09:49 mushroom Allergy Hives Verified 03/23/22 02:09 Assessment & Plan Assessment & Plan (1) Chronic post-traumatic stress disorder (PTSD): Status: Acute Code(s): F43.12 - Post-traumatic stress disorder, chronic Assessment and Plan: ongoing complaints of anxiety around this (2) Di: Status: Acute Code(s): F30.9 - Manic episode, unspecified Assessment and Plan: keeping depakote unchanged ( though might want to reconsider if really has PCOS) changing olanzapine to seroquel for pt co anger, and also to help sleep Plan 03/23: start clonidine 0.05/0.05/0.1 for sympathetic hyperarousal and insomnia with nightmares. start klonopin 0.5 BID for Sz prophylaxis as pt stops 3 AEDs simultaneously. also, anxiety. restart hydroxyzine 25 BID and 25 PRN. 03/24: increased clonidine to 0.1/0.1/0.2 for anxiety/hyperarousal. continue klonopin for now. somatic complaints have ceased, pt requesting VPA restart 500 BID for anxiety, which is accommodated. 03/25: less anxious today, BP down. decrease clonidine from 0.1/0.1/0.2 to 0.05/0.05/0.2. slept well without nightmares. begin klonopin taper, going from 0.5 BID to 0.25/0.5 as of tomorrow. c/p CP and rash, hospitalist consult placed. 03/26: anxious, helped by zyprexa. zyprexa scheduled at 5 BID today. daytime clonidine DCed due to hypotension. HS clonidine 0.2 mg conserved. starting to have feelings. 03/27/2022 Patient anxious pressured somewhat disorganized given literature for education regarding bipolar disorder unclear patient has cycling mood disorder. Not his stabilized ck Depakote level. 03/28: somewhat voluble and labile. agrees to increase VPA to 1250 mg daily. check labs after 5 days. taper klonopin further, to 0.25 BID. 03/29: same presentation as yesterday. hydroxyzine added PRN anxiety. klonopin tapered to 0.25 mg QHS as of 03/30. DC friday with PHP intake . I spent minutes with the patient and/or on the patient floor today, greater than?50% of which was spent counseling/coordinating care. Patient educated on: medication risk/benefits Informed Consent: understands Reason for contiued inpatient stay Substantial Risk for: rapid decompensation
[2022-03-31] MEDS: Divalproex Sodium 500 MG TABLET.DR PO (09:57)
[2022-03-31] MEDS: hydrOXYzine HCL 50 MG TABLET PO (12:20)
[2022-03-31] MEDS: QUEtiapine Fumarate 25 MG TABLET PO ×2 (14:07→19:24)
[2022-03-31] MEDS: Ibuprofen 600 MG TABLET PO (19:24)
[2022-03-31 21:30] VITALS: BP 134/64; PULSE 92; RESP 16; TEMP 36.7; O2SAT 98
[2022-03-31] MEDS: cloNIDine HCL 0.2 MG TABLET PO (21:38)
[2022-03-31] MEDS: Divalproex Sodium 250 MG TABLET.DR 750 MG PO (21:38)
[2022-03-31] MEDS: QUEtiapine Fumarate 50 MG TABLET PO ×2 (21:38→23:05)
[2022-03-31] MEDS: clonazePAM 0.5 MG TABLET 0.25 MG PO (21:38)
[2022-04-01 09:49] VITALS: BP 100/49; PULSE 60; RESP 16; TEMP 36.6; O2SAT 99
[2022-04-01] MEDS: Divalproex Sodium 500 MG TABLET.DR PO (09:51)
[2022-04-01] MEDS: Nicotine 21 MG PATCH.TD24 TRANSDERMA (09:51)
[2022-04-01] MEDS: Omeprazole 20 MG CAPSULE.DR PO (09:51)
[2022-04-01] MEDS: QUEtiapine Fumarate 25 MG TABLET PO (10:18)
--- NOTE | 2022-04-01 12:16 | HO.PSYCHPN ---
Subjective Subjective Date of Service: 04/01/22 Reason For Visit: Posttraumatic Stress Interim History: calm, cooperative, bubbly, cheery. states zyprexa made her angry and seroquel was tried, which has worked out much better for her. now on seroquel at HS and PRN during the day. asks for increased HS dosing and scheduled seroquel during the day, which is accommodated. planning for discharge tomorrow. pt seen with AMANDA de la garza, who discusses dispo plans with pt. graeme also DCed today. per staff, anx 06/24. denied depression yesterday morning. hypomanic in affect. trouble focusing. attending groups. visible, social. PRN zyprexa switched to seroquel. Mental Status Exam Mental Status Exam Narrative: appropriately dressed and groomed. no PMA/PMR. cooperative. speech incr rate, amount; nml loudness, tone. decr latency. thoughts largely linear and logical. affect full range, normo-intense, non-labile. no SI/HI/AVH expressed. Diagnostics Vital Signs (24Hr): Vital Signs - 24 hr 03/31/22 21:30 04/01/22 09:49 Temperature 98.0 F 97.9 F Pulse Rate 92 60 Respiratory Rate 16 16 Blood Pressure 134/64 100/49 L Pulse Oximetry 98 99 Oxygen Delivery Method Room Air Room Air BMI result Body Mass Index 23.4 Labs Results: 03/24/22 06:57 Medications Medications Current Medications Acetaminophen (Acetaminophen 325 Mg Tablet) 650 mg PO Q6H PRN PRN Reason: Headache/Pain Mild Scale (1-3) Last Admin: 03/26/22 21:23 Dose: 650 mg Al Hydroxide/Mg Hydroxide (Magnesium Hydrox/Alum Hydrox 30 Ml Oral.Susp) 30 ml PO Q6H PRN PRN Reason: Heartburn/Nausea Last Admin: 03/24/22 18:43 Dose: 30 ml Artificial Tears (Artificial Tears 15 Ml Drops) 1 drop EYE-BOTH Q4H PRN PRN Reason: Dry Eyes Last Admin: 03/30/22 15:41 Dose: 1 drop Clonidine HCl (Clonidine Hcl 0.2 Mg Tablet) 0.2 mg PO BEDTIME MICHAEL; Protocol Last Admin: 03/31/22 21:38 Dose: 0.2 mg Divalproex Sodium (Divalproex Sodium 500 Mg Tablet.) 500 mg PO DAILY [facility] Last Admin: 04/01/22 09:51 Dose: 500 mg Divalproex Sodium (Divalproex Sodium 250 Mg Tablet.) 750 mg PO BEDTIME [facility] Last Admin: 03/31/22 21:38 Dose: 750 mg Hydroxyzine HCl (Hydroxyzine Hcl 50 Mg Tablet) 50 mg PO Q6H PRN PRN Reason: Anxiety Last Admin: 03/31/22 12:20 Dose: 50 mg Ibuprofen (Ibuprofen 600 Mg Tablet) 600 mg PO Q8H PRN PRN Reason: mod-high pain Last Admin: 03/31/22 19:24 Dose: 600 mg Magnesium Hydroxide (Milk Of Magnesia 30 Ml Oral.Susp) 30 ml PO DAILY PRN PRN Reason: Constipation Nicotine (Nicotine 21 Mg Patch.Td24) 21 mg TRANSDERMA DAILY [facility] Last Admin: 04/01/22 09:51 Dose: 21 mg Nicotine Polacrilex (Nicotine Polacrilex 2 Mg Gum) 4 mg BUCCAL Q2H PRN PRN Reason: Nicotine Cravings Last Admin: 03/30/22 10:39 Dose: 4 mg Omeprazole (Omeprazole 20 Mg Capsule.) 20 mg PO DAILY@0630 [facility] Last Admin: 04/01/22 09:51 Dose: 20 mg Quetiapine Fumarate (Quetiapine Fumarate 25 Mg Tablet) 25 mg PO RQ4H PRN PRN Reason: anxiety/restlessness Last Admin: 04/01/22 10:18 Dose: 25 mg Quetiapine Fumarate (Quetiapine Fumarate 100 Mg Tablet) 100 mg PO BEDTIME [facility] Quetiapine Fumarate (Quetiapine Fumarate 50 Mg Tablet) 50 mg PO DAILY [facility] Quetiapine Fumarate (Quetiapine Fumarate 50 Mg Tablet) 50 mg PO DAILY@1600 [facility] Allergies Allergies Allergy/AdvReac Type Severity Reaction Status Date / Time bupropion [From Wellbutrin] Allergy Severe Anaphylaxis Verified 03/26/22 09:49 Penicillins Allergy Severe Anaphylaxis Verified 03/26/22 09:49 mushroom Allergy Hives Verified 03/23/22 02:09 Assessment & Plan Assessment & Plan (1) Chronic post-traumatic stress disorder (PTSD): Status: Acute Code(s): F43.12 - Post-traumatic stress disorder, chronic Assessment and Plan: ongoing complaints of anxiety around this (2) Di: Status: Acute Code(s): F30.9 - Manic episode, unspecified Plan 03/23: start clonidine 0.05/0.05/0.1 for sympathetic hyperarousal and insomnia with nightmares. start klonopin 0.5 BID for Sz prophylaxis as pt stops 3 AEDs simultaneously. also, anxiety. restart hydroxyzine 25 BID and 25 PRN. 03/24: increased clonidine to 0.1/0.1/0.2 for anxiety/hyperarousal. continue klonopin for now. somatic complaints have ceased, pt requesting VPA restart 500 BID for anxiety, which is accommodated. 03/25: less anxious today, BP down. decrease clonidine from 0.1/0.1/0.2 to 0.05/0.05/0.2. slept well without nightmares. begin klonopin taper, going from 0.5 BID to 0.25/0.5 as of tomorrow. c/p CP and rash, hospitalist consult placed. 03/26: anxious, helped by zyprexa. zyprexa scheduled at 5 BID today. daytime clonidine DCed due to hypotension. HS clonidine 0.2 mg conserved. starting to have feelings. 03/27/2022 Patient anxious pressured somewhat disorganized given literature for education regarding bipolar disorder unclear patient has cycling mood disorder. Not his stabilized ck Depakote level. 03/28: somewhat voluble and labile. agrees to increase VPA to 1250 mg daily. check labs after 5 days. taper klonopin further, to 0.25 BID. 03/29: same presentation as yesterday. hydroxyzine added PRN anxiety. klonopin tapered to 0.25 mg QHS as of 03/30. DC friday with PHP intake . 04/01: voluble, bubbly. doinh well on seroquel after zyprexa was DCed and seroquel started over the weekend due to c/o anger from zyprexa. planning to discharge tomorrow. talkative and effervescent, non-labile. I spent ___25___ minutes with the patient and/or on the patient floor today, greater than?50% of which was spent counseling/coordinating care. Reason for contiued inpatient stay Substantial Risk for: inability to function and rapid decompensation
[2022-04-01] MEDS: hydrOXYzine HCL 50 MG TABLET PO ×2 (13:01→18:55)
[2022-04-01] MEDS: QUEtiapine Fumarate 50 MG TABLET PO (15:19)
[2022-04-01 18:00] VITALS: BP 121/62; PULSE 93; RESP 20; O2SAT 98
[2022-04-01] MEDS: QUEtiapine Fumarate 100 MG TABLET PO (20:42)
[2022-04-01] MEDS: Divalproex Sodium 250 MG TABLET.DR 750 MG PO (20:42)
[2022-04-01] MEDS: cloNIDine HCL 0.2 MG TABLET PO (20:43)
[2022-04-02] MEDS: Artificial Tears 15 ML DROPS 1 DROP EYE-BOTH (05:21)
[2022-04-02] MEDS: Omeprazole 20 MG CAPSULE.DR PO (05:21)
[2022-04-02 05:46] VITALS: BMI 24.2
[2022-04-02] MEDS: QUEtiapine Fumarate 50 MG TABLET PO (08:26)
[2022-04-02] MEDS: Divalproex Sodium 500 MG TABLET.DR PO (08:26)
[2022-04-02 08:27] VITALS: BP 107/55; PULSE 70; RESP 16; TEMP 36.8; O2SAT 97
--- NOTE | 2022-04-02 09:26 | PM.PSYDC ---
DS: Providers Provider Date of admission: 03/22/22 23:46 Primary care physician: Unknown Physician Consults: 03/23/22 00:01 Consult to Hospitalist Routine Consulting Provider: Hospitalist Reason For Exam: admission from OSH 03/25/22 14:06 Consult to Hospitalist Routine Consulting Provider: Hospitalist Reason For Exam: chest pain, rash DS: Diagnosis Discharge Diagnosis (1) Chronic post-traumatic stress disorder (PTSD): Status: Acute (2) Di: Status: Acute DS: Medications Discharge Medications Home Medications: Home Medications Medication Instructions Recorded Confirmed Vitamin C 1,000 mg PO DAILY 03/23/22 03/23/22 divalproex 250 mg tablet,delayed 250 mg PO BID 03/23/22 03/23/22 release (Depakote) hydroxyzine pamoate 25 mg capsule 25 mg BID 03/23/22 03/23/22 levetiracetam 500 mg tablet 500 mg PO BID 03/23/22 03/23/22 (Keppra) oxcarbazepine 300 mg tablet 300 mg PO BID 03/23/22 03/23/22 sertraline 50 mg tablet 50 mg PO DAILY 03/23/22 03/23/22 Previous Rx's Medication Instructions Recorded clonidine HCl 0.2 mg tablet 0.2 mg PO BEDTIME 30 days #30 tabs 04/02/22 divalproex 250 mg tablet,delayed 750 mg PO BEDTIME 30 days #90 tabs 04/02/22 release divalproex 500 mg tablet,delayed 500 mg PO DAILY 30 days #30 tabs 04/02/22 release nicotine (polacrilex) 2 mg gum 4 mg buccal BID PRN Nicotine 04/02/22 Cravings 30 days #120 ea nicotine 21 mg/24 hr daily 21 mg transdermal DAILY 28 days 04/02/22 transdermal patch #28 ea quetiapine 100 mg tablet 100 mg PO BEDTIME 30 days #30 tabs 04/02/22 quetiapine 25 mg tablet 25 mg PO BID PRN 04/02/22 Anxiety/Restlessness 30 days #60 tabs quetiapine 50 mg tablet 50 mg PO BID 30 days #60 tabs 04/02/22 Data Data Completed and Pending Completed studies during hospitalization [Text1]: 03/29/22 08:28 Valproic Acid 68.1 DS: Summary Time Spent with Patient Time attestation: Total time spent providing and/or coordinating discharge services: Discharge Plan Discharge Referrals: Partial Hospitalization Program [Other] - 04/03/22 8:00 am (You are scheduled to complete your intake for PHP on 04/03/22 at 8am. You will receive a zoom link sent to your email. They will then provide you with the schedule for the program and you will most likely start groups the next day on 04/04/22. The program is Friday through Friday from 9am until 145pm.) Kristel Galan (Therapy) [Other] - 04/08/22 3:00 pm (IN OFFICE APPOINTMENT) Tory Arita (Psychiatry) [Other] - 05/01/22 2:30 pm (IN OFFICE APPOINTMENT -Psychiatric Evaluation ) Tory Arita (Psychiatry) [Other] - 05/29/22 2:20 pm (TELEHEALTH APPOINTMENT -Medication Management ) [facility] [Physician] - 1 Week Discharge Medications: New divalproex 250 mg Tablet,Delayed Release (Dr/Ec) 750 mg PO BEDTIME 30 Days Qty: 90 0RF nicotine (polacrilex) 2 mg Gum 4 mg buccal BID PRN (Reason: Nicotine Cravings) 30 Days Qty: 120 0RF divalproex 500 mg Tablet,Delayed Release (Dr/Ec) 500 mg PO DAILY 30 Days Qty: 30 0RF clonidine HCl 0.2 mg Tablet 0.2 mg PO BEDTIME 30 Days Qty: 30 0RF Protocol: Hold for SBP< HOLD for SBP < : 90 nicotine 21 mg/24 hr Patch 24 Hour 21 mg transdermal DAILY 28 Days Qty: 28 0RF quetiapine 100 mg Tablet 100 mg PO BEDTIME 30 Days Qty: 30 0RF quetiapine 50 mg Tablet 50 mg PO BID 30 Days Qty: 60 0RF Rx Instructions: take at 0900 and 1500 quetiapine 25 mg Tablet 25 mg PO BID PRN (Reason: Anxiety/Restlessness) 30 Days Qty: 60 0RF Continued Vitamin C 1,000 mg 1,000 mg PO DAILY Discontinued divalproex [Depakote] 250 mg Tablet,Delayed Release (Dr/Ec) 250 mg PO BID levetiracetam [Keppra] 500 mg Tablet 500 mg PO BID oxcarbazepine 300 mg Tablet 300 mg PO BID sertraline 50 mg Tablet 50 mg PO DAILY hydroxyzine pamoate 25 mg Capsule 25 mg BID
[2022-04-02 10:09] LABS: MANUAL DIFF FLAG NO
[2022-04-02 10:17] LABS: Basophils Absolute Auto 0.1 X10*3/uL (0.0-0.2); Basophils Percent Auto 1.3 % (0-2); Eosinophils Absolute Auto 0.4 X10*3/uL (0.0-0.4); Eosinophils Percent Auto 8.1 % (0-4); Hematocrit 33.3 % (37.0-47.0); Hemoglobin 11.1 g/dl (12.0-16.0); Imm Gran Abs Auto 0.01 X10*3/uL (0.00-0.03); Imm Gran Pct Auto 0.2 % (0.0-0.4); Lymphocytes Absolute Auto 1.9 X10*3/uL (1.2-4.9); Lymphocytes Percent Auto 43.5 % (20-40); Mean Corpuscular HGB Conc 33.3 g/dl (31.0-35.0); Mean Corpuscular Hemoglobin 29.1 pg (27.0-33.0); Mean Corpuscular Volume 87.4 fL (80.0-98.0); Mean Platelet Volume 9.3 fL (9.4-12.3); Monocytes Absolute Auto 0.4 X10*3/uL (0.1-1.2); Monocytes Percent Auto 9.6 % (2-11); Neutrophils Absolute Auto 1.7 x10*3/uL (2.0-8.3); Neutrophils Percent Auto 37.3 % (45-73); Platelet Count 184 X10*3/uL (160-400); Red Blood Count 3.81 X10*6/uL (4.20-5.50); Red Cell Distribution Width 13.5 % (11.0-16.0); White Blood Count 4.5 X10*3/uL (4.8-10.8)
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
[2022-04-02 11:07] LABS: Alanine Aminotransferase 132 U/L (0-31); Albumin Level 3.9 g/dL (3.5-5.0); Alkaline Phosphatase 39 U/L (39-117); Anion Gap 12 (12-20); Aspartate Amino Transferase 69 U/L (5-31); Bilirubin Direct < 0.2 mg/dL (0.0-0.5); Bilirubin Total 0.2 mg/dL (0.0-1.0); Blood Urea Nitrogen 15 mg/dL (9-16); Calcium 9.1 mg/dL (8.4-10.2); Carbon Dioxide 28 mmol/L (22-29); Chloride 101 mmol/L (96-108); Creatinine Clr Calc Pharmacy 93.2; Estimated Glomerular Filt Rate > 60; Glucose Random 71 mg/dL (60-115); Sodium 137 mmol/L (135-145); Total Protein 6.2 g/dL (6.5-8.0)
--- NOTE | 2022-04-02 11:50 | PC.NURSE ---
Patient is alert and oriented x4. Patient reports that she is looking forward discharge and starting the PHP tomorrow. Patient is in agreement with discharge and discharge instructions. Patient denies SI/HI/AH/VH. Denies acute physical complaints at this time.
[2022-04-02 11:55] LABS: Valproate 103.4 mcg/mL (50.0-100.0)
== END 2022-04-02 11:35 | disposition home or self-care (01) | DRG 753 ==
PROVIDERS: Psychiatry & Neurology Psychiatry; Admitting Provider Psychiatry & Neurology Psychiatry; Visit Provider Psychiatry & Neurology Psychiatry
DX: F31.2 Bipolar disorder, current episode manic severe with psychotic features (principal); F14.10 Cocaine abuse, uncomplicated; F17.290 Nicotine dependence, other tobacco product, uncomplicated; Q21.1 Atrial septal defect; F43.10 Post-traumatic stress disorder, unspecified; Z71.6 Tobacco abuse counseling; Z88.0 Allergy status to penicillin; Z88.8 Allergy status to other drugs, medicaments and biological substances; Z79.899 Other long term (current) drug therapy
CPT/HCPCS: 36415; 80048; 80053; 80061; 80076; 80164; 82607; 82746; 83036; 84439; 84443; 85025

== ENCOUNTER 2022-04-10 13:51 | Outpatient (REF) | payer MEDICAID, SELFPAY ==
[2022-04-10 14:11] LABS: MANUAL DIFF FLAG NO
[2022-04-10 14:23] LABS: Basophils Percent Auto 0.9 % (0-2); Eosinophils Absolute Auto 0.1 X10*3/uL (0.0-0.4); Eosinophils Percent Auto 3.2 % (0-4); Hemoglobin 11.9 g/dl (12.0-16.0); Imm Gran Abs Auto 0.01 X10*3/uL (0.00-0.03); Imm Gran Pct Auto 0.2 % (0.0-0.4); Lymphocytes Absolute Auto 1.7 X10*3/uL (1.2-4.9); Lymphocytes Percent Auto 38.7 % (20-40); Mean Corpuscular HGB Conc 33.1 g/dl (31.0-35.0); Mean Corpuscular Hemoglobin 28.9 pg (27.0-33.0); Mean Corpuscular Volume 87.4 fL (80.0-98.0); Mean Platelet Volume 9.7 fL (9.4-12.3); Monocytes Absolute Auto 0.4 X10*3/uL (0.1-1.2); Monocytes Percent Auto 8.9 % (2-11); Neutrophils Absolute Auto 2.1 x10*3/uL (2.0-8.3); Neutrophils Percent Auto 48.1 % (45-73); Platelet Count 221 X10*3/uL (160-400); Red Blood Count 4.12 X10*6/uL (4.20-5.50); Red Cell Distribution Width 13.5 % (11.0-16.0); White Blood Count 4.4 X10*3/uL (4.8-10.8)
[2022-04-10 14:55] LABS: Alanine Aminotransferase 36 U/L (0-31); Albumin Level 4.3 g/dL (3.5-5.0); Alkaline Phosphatase 41 U/L (39-117); Anion Gap 10 (12-20); Aspartate Amino Transferase 23 U/L (5-31); Bilirubin Total 0.6 mg/dL (0.0-1.0); Blood Urea Nitrogen 10 mg/dL (9-16); Calcium 9.2 mg/dL (8.4-10.2); Carbon Dioxide 27 mmol/L (22-29); Chloride 105 mmol/L (96-108); Estimated Glomerular Filt Rate > 60; Glucose Random 64 mg/dL (60-115); Potassium 4.5 mmol/L (3.3-5.1); Sodium 137 mmol/L (135-145); Total Protein 6.9 g/dL (6.5-8.0)
[2022-04-10 15:00] LABS: Valproate 44.7 mcg/mL (50.0-100.0)
[2022-04-10 15:16] LABS: Thyroid Stimulating Hormone 1.38 uIU/mL (0.32-4.0)
[2022-04-10 18:04] LABS: Amphetamine Screen Urine Not Detected (Not Detect); Barbiturates, Urine Not Detected (Not Detect); Benzodiazepines Screen Urine Not Detected (Not Detect); Cannabinoid Screen Urine POSITIVE (Not Detect); Cocaine Screen Urine Not Detected (Not Detect); Fentanyl, urine Not Detected (Not Detect); Opiate Screen Urine Not Detected (Not Detect); Phencyclidine Screen Urine Not Detected (Not Detect)
== END 2022-04-10 13:52 | disposition home or self-care (01) ==
LOC: HO.LAB 13:51
PROVIDERS: Visit Provider Nurse Practitioner Psychiatric/Mental Health
DX: F31.12 Bipolar disorder, current episode manic without psychotic features, moderate (principal); F14.20 Cocaine dependence, uncomplicated; F43.12 Post-traumatic stress disorder, chronic
CPT/HCPCS: 80053; 80164; 80307; 84443; 85025

== ENCOUNTER 2022-04-19 09:15 | Outpatient (RCR) | payer OTHER, SELFPAY ==
[2022-04-04 13:03] VITALS: BMI 22.6
--- NOTE | 2022-04-04 14:42 | PC.NURSE ---
04/04/22- Called Christine at the end of her first day at the [facility] program. The staff report that Christine was not sure if she will return to the program and was frustrated throughout the day. In speaking with her today, she states feeling overwhelmed with the technology and confused re the various appointments she had during the day. We reviewed the groups and provided her with specific information about each group, the composition of the groups and suggestions made to her on how she can get herself ready per group. At the end of the conversation today, she will go to tomorrow's group and asked this therapist to call her at the end of the day tomorrow. She also has my telephone number and will reach out if she needs help tomorrow. She was commended for returning tomorrow and will take one day at a time. Stable mood and appeared less frustrated at the end of the call. - Neyda Almanzar [facility]
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
--- NOTE | 2022-04-04 16:07 | PC.ADMIT ---
Admit to [facility] 04/04/2022. 26 year old with recent in-patient admission at [facility] from 03/22/2022 from [facility] ED per Clinical Support Options Crisis. Patient discharged from in-patient unit on 04/02/2022 with [facility] admit 04/04/22. Diagnosis include: Bipolar Disorder 1 most current episode manic, PTSD chronic, Generalized Anxiety Disorder, Cocaine use Disorder. Patient reports multiple in-patient psychiatric admissions and detox and substance abuse treatments in both [place] and [facility]. Nursing assessment completed. During assessment patient was alert and oriented x 4 with good eye contact, clean and dressed appropriately. Patient presented pressured and irritable intermittently. Reports continued to report anxiety and recent panic attacks. Patient was disorganized and needed instruction on following schedule of groups today. Substance abuse: Patient reports she has not used cocaine or alcohol x 4 months. States she doesn't like smoking weed reports occasional use of edibles. Patient denies depression, SI, HI. Patient denies visual or auditory hallucinations. All medications reconciled with patient. Patient states understanding of medications use, dose, schedule and side effects. Allergies verified with patient. Patient attended medication appointment with TEAM FACILITATOR. Patient agreed to nursing admission assessment via telehealth. `
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
--- NOTE | 2022-04-08 15:40 | PC.NURSE ---
I called and spoke with pt and reviewed treatment plan and schedule. She reports ambivalence around whether she wants to stay in group treatment, stating they are not helpful overall, but that she is in need of medication management. She also spoke about feeling extremely tired and unable to focus in groups, which she attributed to new medications.
--- NOTE | 2022-04-09 16:20 | HO.PHPPROGNO ---
Subjective Subjective Date of Service: 04/09/22 Reason For Visit: PTSD Interim History: Patient reports she has not yet gotten lab work done. Reports feeling over-sedated, having difficulty keeping her eyes open in the morning. Reports little sleep, states that she stayed up yesterday until 04:00. Reports she has been taking NyQuil cold medication at night, in addition to her medications, due to difficulty sleeping. Patient irritable, labile. Medication Compliance: Yes Side effects from medications: No Attending Groups: Intermittent Review of Systems Acute medical concerns: No Medical Review of Systems: unchanged Review of Systems Review of Systems Yes all other systems are reviewed and are negative Constitutional: Reports no additional constitutional complaints Mental Status Exam Mental Status Exam Narrative: Spoke with patient on telephone. Patient Orientation: Person, Place, Time and Situation Level of Consciousness: Appropriate Patient Behavior: Cooperative and Anxious Mood Description: Anxious, Labile and Angry Affect Description: Anxious, Labile and Angry Patient Cognition Impaired: No Ability to Follow Directions: Good Speech Pattern: Clear, Rapid and Pressured Memory Description: Intact Hallucinations: None Delusions: Not Present Thought Process: Intact Thought Content: positive for Intact, positive for Circumstantial and positive for Loose Associations Depressive Symptoms: Increased Anxiety, Increased Irritability, Difficulty Sleeping, Increased Fatigue and Difficulty Concentrating Judgement: Fair Diagnostics Vital Signs (24Hr): BMI result Body Mass Index 22.6 Assessment & Plan Assessment & Plan (1) Bipolar I, most recent episode manic, severe with psychotic behavior: Status: Acute Code(s): F31.2 - Bipolar disorder, current episode manic severe with psychotic features Assessment and Plan: Patient requested phone call, extremely irritable, labile. Pressured speech at times, rapid. Reports that she feels ?mentally trapped?. States that she is not sleeping well, has been taking NyQuil cold medication at night to help fall asleep. And then feels overly sedated in the mornings. States that she feels prescriber is are like drug dealers, taking her on and off of pills. States that she is experiencing extreme panic attacks related to her PTSD. Then states ?there is something wrong with me ?. States that she believes she was discharged from hospital to soon. Denies any thought of harm to self or others, no SI. Reports that she feels safe. Reports she has not yet obtained lab work. Was in the home, spoke directly with cousin per patient request. Cousin is agreeable to bring inpatient tomorrow morning early to obtain labs. Patient was advised to not take a.m. Depakote dose prior to lab work. She stated that she understood. We discussed timing of medications, stopping using NyQuil, obtain lab work, adding trazodone at bedtime to help with sleep. Patient had taken trazodone in the hospital with good effect for sleep. We discussed possibly decreasing a.m. dose of Seroquel if needed. Patient will 1st try stopping NyQuil and adding trazodone. Patient is agreeable to get labs done tomorrow morning. (2) Post-traumatic stress disorder, chronic: Status: Acute Code(s): F43.12 - Post-traumatic stress disorder, chronic (3) Cocaine use disorder: Status: Acute Code(s): F14.10 - Cocaine abuse, uncomplicated Assessment and Plan: Patient states that she is taking her medications and not using substances. Plan 1. Continue with current [facility] plan of care. 2. Obtain lab work tomorrow morning. 3. Start trazodone 50 mg p.r.n. at bedtime for sleep. 4. Follow-up as per protocol. Patient educated on: diagnosis, medication risk/benefits, substance abuse and therapeutic strategies Informed Consent: understands Reason for contiued partial hosp. stay Substantial Risk for: harm to self, inability to function, rapid decompensation and med/psych decompensation Certification I certify that partial hospital treatment is medically necessary due to the symptoms and problems resulting from the patient's mental illness and the failure to treat the patient at the partial hospital level of care would likely result in the patient requiring inpatient psychiatric care which could not be prevented at a less intensive level of care. I spent minutes with the patient and/or on the patient floor today, greater than?50% of which was spent counseling/coordinating care. Discharge Plan Discharge Attending provider: Andrew Caban Medications: New clonidine HCl 0.1 mg tablet 0.05 mg PO DAILY PRN (Reason: anxiety) Qty: 14 0RF Rx Instructions: take 0.5mg daily prn, no later than 2:00pm trazodone 50 mg tablet 50 mg PO BEDTIME PRN (Reason: sleep) Qty: 7 0RF No Action divalproex 250 mg Tablet,Delayed Release (Dr/Ec) 750 mg PO BEDTIME 30 Days Qty: 90 0RF Rx Instructions: Take with 500mg tablet to equal 750mg at bedtime nicotine (polacrilex) 2 mg Gum 4 mg buccal BID PRN (Reason: Nicotine Cravings) 30 Days Qty: 120 0RF divalproex 500 mg Tablet,Delayed Release (Dr/Ec) 500 mg PO DAILY 30 Days Qty: 30 0RF Rx Instructions: Take Take 500mg every morning. Take with 250mg tab at bedtime to equal 750mg clonidine HCl 0.2 mg Tablet 0.2 mg PO BEDTIME 30 Days Qty: 30 0RF Protocol: Hold for SBP< HOLD for SBP < : 90 quetiapine 100 mg Tablet 100 mg PO BEDTIME 30 Days Qty: 30 0RF quetiapine 50 mg Tablet 50 mg PO BID 30 Days Qty: 60 0RF Rx Instructions: take at 0900 and 1500 quetiapine 25 mg Tablet 25 mg PO BID PRN (Reason: Anxiety/Restlessness) 30 Days Qty: 60 0RF Telehealth Telehealth Location of provider rendering services: practice address Location of patient: address on file Patient Identification confirmed using: Name, : Yes Telehealth method: voice only Patient verbally consented to treatment: Yes Patient verbally consented to billing insurance company: Yes Patient informed of any privacy concerns related to visit: Yes Minutes spent on Phone/Video with Pt.: 15
--- NOTE | 2022-04-11 09:49 | PC.NURSE ---
I called and LM for pt at 9:15 after she did not show for community meeting and didn't call. I reminded her that we have to call her emergency contact if we don't hear from her, then do a wellness check, etc, and asked her to pls call. At 9:35 I called her emergency contact, Miguelina (cousin). I spoke to Miguelina who said pt is with her and sleeping, as they stayed up late talking last night . I asked her to pls have pt call when able.
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
--- NOTE | 2022-04-17 13:29 | HO.PHPPROGNO ---
Subjective Subjective Date of Service: 04/17/22 Reason For Visit: PTSD Medical Problems Affecting Mental Status: No Interim History: Reports feeling ?claustrophobic, panicky ?. Reports not finding PHP to be helpful. Poor sleep, increased anxiety. Asking for sertraline, as she had been taking this in [place]. Denies SI/HI, no safety concerns. Medication Compliance: Yes Side effects from medications: Yes (Feels tired at times from quetiapine, although she is finding it helpful ) Attending Groups: Yes Review of Systems Acute medical concerns: No Medical Review of Systems: unchanged Review of Systems Review of Systems Yes all other systems are reviewed and are negative Constitutional: Reports no additional constitutional complaints Mental Status Exam Mental Status Exam Narrative: Alert and oriented, fully attentive. No involuntary movements noted, motor activity calm, posture within normal limits. Normal ambulation. No cogwheeling or rigidity noted. Patient Appearance: Appropriate Patient Orientation: Person, Place, Time and Situation Level of Consciousness: Appropriate Patient Behavior: Cooperative and Anxious Mood Description: Anxious Affect Description: Anxious Patient Cognition Impaired: No Ability to Follow Directions: Good Speech Pattern: Clear and Appropriate Memory Description: Intact Hallucinations: None Delusions: Not Present Thought Process: Intact Thought Content: positive for Intact Depressive Symptoms: Increased Anxiety, Increased Irritability and Difficulty Concentrating Judgement: Fair Diagnostics Vital Signs (24Hr): BMI result Body Mass Index 22.6 Assessment & Plan Assessment & Plan (1) Bipolar I, most recent episode manic, severe with psychotic behavior: Status: Acute Code(s): F31.2 - Bipolar disorder, current episode manic severe with psychotic features Assessment and Plan: Reports feeling ?claustrophobic, panicky ?. Reports not finding PHP to be helpful. Poor sleep, increased anxiety. Asking for sertraline, as she had been taking this in [place]. Content with Seroquel dosing. Feels that she needs a higher dose of Depakote, or another mood stabilizer. We discussed obtaining lab work, LFT's, CBC, new Depakote level. She was hesitant at 1st, as she states ?I hate needles ?. However, during further discussion, she was agreeable to obtain lab work. Denies SI/HI, no safety concerns. We discussed possible Lamictal initiation, with possibility of a future transition from Depakote to Lamictal, as it does not require blood work. Medication was discussed in detail, including indications, risks both adverse and common, benefits, and alternatives of treatment recommendations. She demonstrated her understanding, and asked several appropriate questions that were answered to her satisfaction. However at this time, she is not willing to trial Lamictal, but would like to read about it more on her own. She states that when she was in [place] as she was taking sertraline 25 mg b.i.d.. She stated that it was helpful with her level of anxiety, and she fears her anxiety is directly related to her trauma history. We discussed possible bipolar activation with an SSRI, and her reporting during initial visit that she felt activated with sertraline. She states that at that time she was also withdrawing from cocaine, and at this time she is not even positive of whether not she believes that she has bipolar disorder, as she is currently working with a new therapist, and has been discussing severe trauma history/PTSD rather than bipolar. We discussed the risks of adding SSRI sertraline, and patient was advised to watch for possible manic/hypomanic symptoms. She stated that she would do so, and stop immediatly if any symptoms emerged. (2) Post-traumatic stress disorder, chronic: Status: Acute Code(s): F43.12 - Post-traumatic stress disorder, chronic Assessment and Plan: Patient is not finding PHP to be helpful at this time, as she has been through multiple treatment programs and has already learned the coping skills discussed in this program. She believes that she needs a trauma survivor support group, and plans to locate one. She will meet with clinician here, and is unsure whether or not she wishes to continue. (3) Cocaine use disorder: Status: Acute Code(s): F14.10 - Cocaine abuse, uncomplicated Assessment and Plan: Participating in co occurring disorder group, continues to refrain from cocaine use. Plan 1. Continue with current [facility] plan of care. 2. Add sertraline 25 mg daily, 7 day script sent to pharmacy. 3. Obtain lab work. 4. Follow-up as per protocol. Patient educated on: diagnosis, medication risk/benefits, substance abuse and therapeutic strategies Informed Consent: understands Reason for contiued partial hosp. stay Substantial Risk for: inability to function, rapid decompensation and med/psych decompensation Certification I certify that partial hospital treatment is medically necessary due to the symptoms and problems resulting from the patient's mental illness and the failure to treat the patient at the partial hospital level of care would likely result in the patient requiring inpatient psychiatric care which could not be prevented at a less intensive level of care. I spent minutes with the patient and/or on the patient floor today, greater than?50% of which was spent counseling/coordinating care. Discharge Plan Discharge Attending provider: Andrew Caban Medications: New clonidine HCl 0.1 mg tablet 0.1 mg PO DAILY PRN (Reason: anxiety) Qty: 30 0RF Rx Instructions: take 1/2 to 1 tab daily as needed for anxiety. Hold for systolic BP >90 quetiapine 50 mg tablet 50 mg PO BID Qty: 30 0RF trazodone 50 mg tablet 50 mg PO BEDTIME PRN (Reason: sleep) Qty: 30 0RF sertraline 25 mg tablet 25 mg PO DAILY Qty: 14 0RF Discontinued quetiapine 50 mg Tablet 50 mg PO BID 30 Days Qty: 60 0RF Rx Instructions: take at 0900 and 1500 No Action nicotine (polacrilex) 2 mg Gum 4 mg buccal BID PRN (Reason: Nicotine Cravings) 30 Days Qty: 120 0RF clonidine HCl 0.2 mg Tablet 0.2 mg PO BEDTIME 30 Days Qty: 30 0RF Protocol: Hold for SBP< HOLD for SBP < : 90 quetiapine 100 mg Tablet 100 mg PO BEDTIME 30 Days Qty: 30 0RF quetiapine 25 mg Tablet 25 mg PO BID PRN (Reason: Anxiety/Restlessness) 30 Days Qty: 60 0RF divalproex [Depakote] 500 mg Tablet,Delayed Release (Dr/Ec) 500 mg PO BID
--- NOTE | 2022-04-19 13:28 | PC.NURSE ---
Patient scheduled for routine discharge today. Denied SI or thoughts to harm self. Reports feeling better. She has the crisis number if needed. Reviewed patient medications with patient. Patient reports taking them as prescribed.
--- NOTE | 2022-04-19 15:36 | HO.PHPPROGNO ---
Subjective Subjective Date of Service: 04/19/22 Reason For Visit: PTSD Medical Problems Affecting Mental Status: No Interim History: Patient describes mood today as anxious ?. Has found PHP helpful. Feels stable for discharge from [facility] at this time. No SI/HI, no safety concerns at this time. Need refills for Seroquel and sertraline. Medication Compliance: Yes Side effects from medications: No Attending Groups: Yes Review of Systems Acute medical concerns: No Medical Review of Systems: unchanged Review of Systems Review of Systems Yes all other systems are reviewed and are negative Constitutional: Reports no additional constitutional complaints Mental Status Exam Mental Status Exam Narrative: Alert and oriented, fully attentive. No involuntary movements noted, motor activity calm, posture within normal limits. Normal ambulation. No cogwheeling or rigidity noted. No mood lability or constriction noted. Patient Appearance: Well Grooomed and Appropriate Patient Orientation: Person, Place, Time and Situation Level of Consciousness: Appropriate Patient Behavior: Appropriate, Cooperative and Anxious Mood Description: Anxious Affect Description: Anxious (still anxious, but Appears improved) Patient Cognition Impaired: No Ability to Follow Directions: Good Speech Pattern: Clear, Appropriate and Coherent Memory Description: Intact Hallucinations: None Delusions: Not Present Thought Process: Intact Thought Content: positive for Intact Depressive Symptoms: Increased Anxiety and Difficulty Concentrating Judgement: Good Diagnostics Vital Signs (24Hr): BMI result Body Mass Index 22.6 Assessment & Plan Assessment & Plan (1) Bipolar I, most recent episode manic, severe with psychotic behavior: Status: Acute Code(s): F31.2 - Bipolar disorder, current episode manic severe with psychotic features Assessment and Plan: Patient describes mood today as anxious ?. No mood lability, irritability observed. Patient appears to be more stabilized than when 1st started PHP program. Able to sit calmly during encounter, and was fully cooperative. Has found PHP helpful. Feels stable for discharge from [facility] at this time. No SI/HI, no safety concerns at this time. Need refills for Seroquel and sertraline. (2) Post-traumatic stress disorder, chronic: Status: Acute Code(s): F43.12 - Post-traumatic stress disorder, chronic (3) Cocaine use disorder: Status: Acute Code(s): F14.10 - Cocaine abuse, uncomplicated Assessment and Plan: Patient did not report any current use of cocaine at this time, did not report any cravings, did not appear to have any withdrawals as well. Plan 1. Patient appears stable for discharge from [facility] at this time. 2. Refills sent to pharmacy. 3. Patient has upcoming intake with psychiatric providers, planned to follow up with a new provider going forward. Patient educated on: diagnosis, medication risk/benefits, substance abuse and therapeutic strategies Informed Consent: understands Reason for contiued partial hosp. stay Substantial Risk for: stable for discharge Certification I certify that partial hospital treatment is medically necessary due to the symptoms and problems resulting from the patient's mental illness and the failure to treat the patient at the partial hospital level of care would likely result in the patient requiring inpatient psychiatric care which could not be prevented at a less intensive level of care. I spent minutes with the patient and/or on the patient floor today, greater than?50% of which was spent counseling/coordinating care. Discharge Plan Discharge Attending provider: Andrew Caban Additional Instructions: Therapy appointment on Friday04/22/22 at 3:00 pm at [facility]. Psychiatry appointment 05/01/22 at [facility]. Medications: New clonidine HCl 0.1 mg tablet 0.1 mg PO DAILY PRN (Reason: anxiety) Qty: 30 0RF Rx Instructions: take 1/2 to 1 tab daily as needed for anxiety. Hold for systolic BP >90 trazodone 50 mg tablet 50 mg PO BEDTIME PRN (Reason: sleep) Qty: 30 0RF quetiapine 50 mg tablet 50 mg PO BID Qty: 60 0RF sertraline 25 mg tablet 25 mg PO DAILY Qty: 30 0RF Discontinued quetiapine 50 mg Tablet 50 mg PO BID 30 Days Qty: 60 0RF Rx Instructions: take at 0900 and 1500 No Action nicotine (polacrilex) 2 mg Gum 4 mg buccal BID PRN (Reason: Nicotine Cravings) 30 Days Qty: 120 0RF clonidine HCl 0.2 mg Tablet 0.2 mg PO BEDTIME 30 Days Qty: 30 0RF Protocol: Hold for SBP< HOLD for SBP < : 90 quetiapine 100 mg Tablet 100 mg PO BEDTIME 30 Days Qty: 30 0RF quetiapine 25 mg Tablet 25 mg PO BID PRN (Reason: Anxiety/Restlessness) 30 Days Qty: 60 0RF divalproex [Depakote] 500 mg Tablet,Delayed Release (Dr/Ec) 500 mg PO BID Stand Alone Forms: Patient Portal Discharge page
== END 2022-04-19 23:59 | disposition home or self-care (01) ==
LOC: HO.PHPA 09:15
PROVIDERS: Visit Provider Psychiatry & Neurology Psychiatry
DX: F31.2 Bipolar disorder, current episode manic severe with psychotic features (principal); F43.12 Post-traumatic stress disorder, chronic; F14.10 Cocaine abuse, uncomplicated; Z79.899 Other long term (current) drug therapy
CPT/HCPCS: 90791; 90853